=== PATIENT | female | born 1965 | race Caucasian/White ===

== ENCOUNTER → 2016-12-05 | Outpatient (CLI) | payer OTHER ==
[2016-12-05 09:34] LABS: CH 26.1; HCT 36.7 % (34.0-46.0); HDW 3.28; HGB 11.3 gm/dL (11.4-16.0); Hypochromasia Marked; MCHC 30.9 g/dL (31.0-37.0); MCV 87.3 fL (80.0-100.0); Mean Platelet Volume 6.3; RDW 13.1 % (11.5-15.5); WBC 7.4 k/uL (3.8-10.6)
--- NOTE | 2016-12-05 10:19 | US ---
EXAMINATION TYPE: US pelvic complete DATE OF EXAM: 12/05/2016 9:28 AM COMPARISON: NONE CLINICAL HISTORY: N83.20 Previous ovarian cyst. General pelvic pain, dub, prior , tubal TECHNIQUE: Transabdominal (TA) Date of LMP: 11/26/16 EXAM MEASUREMENTS: Uterus: 10.4 x 6.5 x 7.8 cm Endometrial Stripe: 0.9 cm Right Ovary: 5.3 x 3.7 x 3.8 cm Left Ovary: 3.2 x 1.7 x 2.5 cm 1. Uterus: Anteverted bulky attenuating uterine body with 5.0cm myometrial hypoechoic nodule seen anteriorly 2. Endometrium: wnl 3. Right Ovary: seen with a 4.1cm cyst 4. Left Ovary: wnl 5. Bilateral Adnexa: wnl 6. Posterior cul-de-sac: no free fluid seen IMPRESSION: 1. Uterus appears to be bulky and heterogeneous with a 5 cm focal suspected fibroid. 2. 4.1 cm right ovarian cyst has a simple appearance.
[2016-12-05 10:41] LABS: Follicle Stimulating Hormone 9.9 mIU/mL; Prolactin 19.8 ng/mL (3.0-18.6)
== END | disposition home or self-care (01) ==
LOC: RADUSWWP 08:44
PROVIDERS: ATTEND Obstetrics & Gynecology
DX: N83.201 Unspecified ovarian cyst, right side (principal); N92.0 Excessive and frequent menstruation with regular cycle
CPT/HCPCS: 36415; 76856; 83001; 83002; 84146; 84443; 85027

== ENCOUNTER → 2016-12-29 | Outpatient (CLI) | payer OTHER ==
[2016-12-29 10:07] LABS: Basophils # (A) 0.1 k/uL (0-0.2); Basophils % (A) 1 %; CH 24.9; CHCM 29.3; Eosinophils # (A) 0.2 k/uL (0-0.7); Eosinophils % (A) 2 %; HDW 3.31; HGB 10.2 gm/dL (11.4-16.0); Hypochromasia Marked; Luc # (Auto) 0.27; Luc % (Auto) 4; Lymphocytes # (A) 1.6 k/uL (1.0-4.8); Lymphocytes % (A) 25 %; MCH 25.4 pg (25.0-35.0); MCHC 29.9 g/dL (31.0-37.0); MCV 85.1 fL (80.0-100.0); Mean Platelet Volume 6.6; Monocytes # (A) 0.4 k/uL (0-1.0); Monocytes % (A) 6 %; Neutrophils % (A) 62 %; RDW 13.3 % (11.5-15.5); WBC 6.5 k/uL (3.8-10.6); WBC (Perox) 7.05
== END | disposition home or self-care (01) ==
LOC: LABPAT 09:42
PROVIDERS: ATTEND Obstetrics & Gynecology
DX: Z01.818 Encounter for other preprocedural examination (principal); I45.10 Unspecified right bundle-branch block
CPT/HCPCS: 36415; 80053; 80061; 84443; 85025; 86803; 87389; 93005

== ENCOUNTER → 2016-12-29 | Outpatient (CLI) | payer OTHER ==
[2016-12-29 12:23] LABS: ALT 22 U/L (9-52); AST 20 U/L (14-36); Alkaline Phosphatase 80 U/L (38-126); Anion Gap 11 mmol/L; Blood Urea Nitrogen 11 mg/dL (7-17); Calcium 8.9 mg/dL (8.4-10.2); Carbon Dioxide 23 mmol/L (22-30); Chloride 104 mmol/L (98-107); Cholesterol 221 mg/dL (<200); Glucose 74 mg/dL (74-99); HDL Cholesterol 67 mg/dL (40-60); Non-African American GFR(MDRD) >60 (>60 ml/min/1.73 sqM); Potassium 4.4 mmol/L (3.5-5.1); Sodium 138 mmol/L (137-145); Total Bilirubin 0.4 mg/dL (0.2-1.3); Triglycerides 256 mg/dL (<150)
[2016-12-29 15:10] LABS: Hepatitis C Virus IgG Ab Negative (Negative)
[2016-12-30 08:06] LABS: HIV-1/HIV-2 Ab Screen NONREAC (NON REAC)
== END | disposition home or self-care (01) ==
LOC: LABWHC1 09:47
PROVIDERS: ATTEND Family Medicine
DX: Z00.00 Encounter for general adult medical examination without abnormal findings (principal)
CPT/HCPCS: 36415; 80053; 80061; 84443; 86803; 87389

== ENCOUNTER 2017-01-04 09:34 | Day surgery (SDC) | payer OTHER ==
[2017-01-01 15:52] VITALS: BMI 22.7
--- NOTE | 2017-01-04 07:40 | P.HPOB ---
History of Present Illness H&P Date: 01/04/17 Chief Complaint: Menorrhagia Gala is a 51-year-old female with recurrent irregular periods and long menses. Patient reports her last 3 months she's a history of heavy bleeding with passage of clots as large . She's going very concerned and previously with her primary care providers has had no other workup done. She reports that prior to this episode 7 years ago she went to usual having. Abdomen again over the last 5 year she had not had bleeding until approximately 3 months ago ultrasound was done and showed a 5 cm fibroid and a 4 cm simple cyst. She is scheduled for D& C hysteroscopy to rule out cancer or hyperplasia. Risks/benefits/alternatives to this procedure were discussed with the patient in detail and all questions were answered for her prior to proceeding to the operating room. On physical exam vital signs are stable and afebrile. Heart regular, lungs clear, extremities without pain. Pelvic exam has been deferred to the operating room. Past Medical History Past Medical History: Hypertension, Musculoskeletal Disorder Additional Past Medical History / Comment(s): DEGENERATIVE DISC DISEASE, ARTHRITIS SPINE. MENOMETRORRHAGIA History of Any Multi-Drug Resistant Organisms: None Reported Past Surgical History: Appendectomy, Back Surgery, Section, Orthopedic Surgery, Tubal Ligation Additional Past Surgical History / Comment(s): ARTHROSCOPY LEFT KNEE Past Anesthesia/Blood Transfusion Reactions: No Reported Reaction Past Psychological History: No Psychological Hx Reported Smoking Status: Former smoker Past Alcohol Use History: None Reported Additional Past Alcohol Use History / Comment(s): QUIT SMOKING 1995 Past Drug Use History: None Reported - Past Family History Mother Family Medical History: Cancer, Deep Vein Thrombosis (DVT) Medications and Allergies Home Medications Medication Instructions Recorded Confirmed Type Lisinopril [Prinivil] 10 mg PO DAILY 01/01/17 01/01/17 History Allergies Allergy/AdvReac Type Severity Reaction Status Date / Time amoxicillin [From Augmentin] AdvReac SEVERE Verified 01/01/17 15:55 YEAST INFECTION clavulanic acid AdvReac SEVERE Verified 01/01/17 15:55 [From Augmentin] YEAST INFECTION Exam Osteopathic Statement: *. No significant issues noted on an osteopathic structural exam other than those noted in the History and Physical/Consult. - OBG Physical Exam Abdomen: bowel sounds normal, no diffuse tenderness, no bruit present, no guarding noted, no hepatomegaly, no splenomegaly, no mass
[~2017-01-04 09:34] MED LIST: DEXAMETHASONE SOD PHOSPHATE 10 MG/ML 1 ML VIAL IV ONE; HYDROmorphone 1 MG/ML 1 ML SYRINGE IVP PRN; LACTATED RINGERS 1,000 ML IV SCH; ONDANSETRON 4 MG/2 ML VIAL IVP ONE; Pre Op ABX Message 1 EACH MISC MISCELLANE ONE
[2017-01-04] MEDS ORDERED: LIDOCAINE 1% 20 ML VIAL (10MG/ML) FOR IV START INTRADERMA ONE (10:08)
[2017-01-04] MEDS ORDERED: PROPOFOL 10 MG/ML 20 ML VIAL IV ONE (10:38)
[2017-01-04] MEDS ORDERED: LIDOCAINE 1% INJ 10MG/ML (20 ML MDV) ONE (10:38)
[2017-01-04] MEDS ORDERED: MIDAZOLAM 2 MG/2 ML VIAL ONE (10:38)
[2017-01-04] MEDS ORDERED: KETOROLAC 30 MG/ML 1 ML VIAL ONE (10:38)
[2017-01-04] MEDS ORDERED: fentaNYL (PF) 50 MCG/ML 2 ML AMP ONE (10:38)
--- NOTE | 2017-01-04 11:07 | P.OP ---
Date of Procedure: 01/04/17 Preoperative Diagnosis: Menorrhagia Postoperative Diagnosis: Same Procedure(s) Performed: D&C with hysteroscopy Anesthesia: JUAN Surgeon: Jules Lira Estimated Blood Loss (ml): 3 Pathology: other (Uterine curettings and Pap smear) Condition: stable Disposition: same day Operative Findings: Proliferative endometrium Description of Procedure: Patient was taken to the operating suite where a general anesthetic was found be adequate. She was prepped and draped in the normal sterile fashion and placed in the dorsal lithotomy position. Initially a weighted speculum was inserted into the vagina and the anterior lip of the cervix was identified and grasped with a single-toothed tenaculum. Uterus was then sounded to 9 cm and cervix was dilated. Camera was inserted it is noted the patient has a retroverted uterus but no other gross findings are noted. Proliferative endometrium was noted with hysteroscopy. Once this was completed, sharp curettings of the endometrium which were obtained and placed on [facility] pathology to evaluate. Once this was accomplished instruments were removed and a Pap smear was obtained and sent to pathology. Sponge, lap, were all correct 2. Patient was then taken to the recovery room in stable and satisfactory condition. Plan - Discharge Summary New Discharge Prescriptions: Ibuprofen [Motrin] 600 mg PO Q6HR PRN #30 tab PRN Reason: Pain Discharge Medication List HYDROcodone/APAP 7.5-325MG [Hendrix 7.5] 1 - 2 each PO Q6HR PRN #40 tab 01/14/14 [ Rx] Lisinopril [Prinivil] 10 mg PO DAILY 01/01/17 [History] Ibuprofen [Motrin] 600 mg PO Q6HR PRN #30 tab 01/04/17 [Rx] Follow up Appointment(s)/Referral(s): Jules Lira DO [Doctor of Osteopathic Medicine] - 2 Weeks Activity/Diet/Wound Care/Special Instructions: Heavy lifting, limit stairs and driving and pelvic rest today. If any high temperatures, heavy bleeding, or severe pain call my office
[2017-01-04 11:16] VITALS: TEMP 97.4
[2017-01-04 12:07] VITALS: RESP 18
[2017-01-04 12:37] VITALS: BP 122/78; PULSE 78
== END 2017-01-04 13:02 | disposition home or self-care (01) ==
LOC: OR 09:34
PROVIDERS: ATTEND Obstetrics & Gynecology
DX: D25.0 Submucous leiomyoma of uterus (principal); I10 Essential (primary) hypertension; N92.0 Excessive and frequent menstruation with regular cycle; N85.02 Endometrial intraepithelial neoplasia [EIN]; R87.611 Atypical squamous cells cannot exclude high grade squamous intraepithelial lesion on cytologic smear of cervix (ASC-H); Z88.0 Allergy status to penicillin; Z79.899 Other long term (current) drug therapy; Z87.891 Personal history of nicotine dependence
CPT/HCPCS: 81025; 88305; 58558; J2250; J1100; J2405; J2001; J3010; J1885; J2704

== ENCOUNTER → 2017-01-12 | Outpatient (CLI) | payer OTHER ==
--- NOTE | 2017-01-13 12:56 | ECHOF ---
Referral Reason:R00.2 Palpitations MEASUREMENTS -------- HEIGHT: 170.2 cm WEIGHT: 63.5 kg BP: 153/73 RVIDd: 3.2 cm (< 3.3) IVSd: 1.0 cm (0.6 - 1.1) LVIDd: 4.5 cm (3.9 - 5.3) LVPWd: 1.1 cm (0.6 - 1.1) IVSs: 1.3 cm LVIDs: 3.2 cm LVPWs: 1.5 cm LA Diam: 3.3 cm (2.7 - 3.8) LAESV Index (A-L): 14.58 ml/m Ao Diam: 3.3 cm (2.0 - 3.7) AV Cusp: 2.0 cm (1.5 - 2.6) MV EXCURSION: 24.816 mm (> 18.000) MV EF SLOPE: 120 mm/s (70 - 150) EPSS: 0.3 cm MV E Kole: 0.78 m/s MV DecT: 254 ms MV A Kole: 0.74 m/s MV E/A Ratio: 1.06 FINDINGS -------- Sinus rhythm. This was a technically good study. The left ventricular size is normal. There is borderline concentric left ventricular hypertrophy. Overall left ventricular systolic function is normal with, an EF between 60 - 65 %. The right ventricle is normal in size and function. Normal LA size by volume 22+/-6 ml/m2. The right atrium is normal in size. The aortic valve is trileaflet and appears structurally normal. The mitral valve is normal. Trace tricuspid regurgitation present. The pulmonic valve is normal. The aortic root size is normal. Normal inferior vena cava with normal inspiratory collapse consistent with estimated right atrial pressure of 5 mmHg. The pericardium is normal. CONCLUSIONS -------- 1. Sinus rhythm. 2. The mitral valve is normal. 3. Trace tricuspid regurgitation present. 4. The pulmonic valve is normal. 5. The aortic root size is normal. 6. Normal inferior vena cava with normal inspiratory collapse consistent with estimated right atrial pressure of 5 mmHg. 7. The pericardium is normal. 8. This was a technically good study. 9. The left ventricular size is normal. 10. There is borderline concentric left ventricular hypertrophy. 11. Overall left ventricular systolic function is normal with, an EF between 60 - 65 %. 12. The right ventricle is normal in size and function. 13. Normal LA size by volume 22+/-6 ml/m2. 14. The right atrium is normal in size. 15. The aortic valve is trileaflet and appears structurally normal. ART EDITOR: Jana Brothers RDCS
== END | disposition home or self-care (01) ==
LOC: RADECHMAIN 11:18
PROVIDERS: ATTEND Family Medicine
DX: I07.1 Rheumatic tricuspid insufficiency (principal)
CPT/HCPCS: 93306

== ENCOUNTER 2017-01-18 09:25 | Day surgery (SDC) | payer OTHER ==
[2017-01-16 14:55] VITALS: BMI 21.9
[~2017-01-18 09:25] MED LIST changes: -DEXAMETHASONE SOD PHOSPHATE 10 MG/ML 1 ML VIAL IV ONE; -HYDROmorphone 1 MG/ML 1 ML SYRINGE IVP PRN; -ONDANSETRON 4 MG/2 ML VIAL IVP ONE; -Pre Op ABX Message 1 EACH MISC MISCELLANE ONE
[2017-01-18 10:31] VITALS: RESP 16; TEMP 98.5
[2017-01-18] MEDS ORDERED: LIDOCAINE 1% 20 ML VIAL (10MG/ML) FOR IV START INTRADERMA ONE (10:34)
[2017-01-18] MEDS ORDERED: PROPOFOL 10 MG/ML 20 ML VIAL IV ONE (10:40)
--- NOTE | 2017-01-18 10:40 | P.GSHP ---
History of Present Illness H&P Date: 01/18/17 Chief Complaint: Screening colonoscopy - Constitutional Constitutional: Reports as per HPI Past Medical History Past Medical History: Musculoskeletal Disorder Additional Past Medical History / Comment(s): DEGENERATIVE DISC DISEASE, ARTHRITIS SPINE History of Any Multi-Drug Resistant Organisms: None Reported Past Surgical History: Back Surgery, Section, Orthopedic Surgery, Tubal Ligation Additional Past Surgical History / Comment(s): ARTHROSCOPY LEFT KNEE, D & C Past Anesthesia/Blood Transfusion Reactions: No Reported Reaction Past Psychological History: No Psychological Hx Reported Smoking Status: Former smoker Past Alcohol Use History: Rare Additional Past Alcohol Use History / Comment(s): QUIT SMOKING 1992 Past Drug Use History: None Reported - Past Family History Mother Family Medical History: Cancer, Deep Vein Thrombosis (DVT) Medications and Allergies Home Medications Medication Instructions Recorded Confirmed Type Lisinopril [Prinivil] 10 mg PO DAILY 01/01/17 01/18/17 History Allergies Allergy/AdvReac Type Severity Reaction Status Date / Time amoxicillin [From Augmentin] AdvReac SEVERE Verified 01/18/17 10:24 YEAST INFECTION clavulanic acid AdvReac SEVERE Verified 01/18/17 10:24 [From Augmentin] YEAST INFECTION Surgical - Exam Vital Signs Temp Pulse Resp BP 98.5 F 69 16 172/78 01/18/17 10:26 01/18/17 10:26 01/18/17 10:26 01/18/17 10:26 - General well developed, no distress - Eyes PERRL - ENT normal pinna - Neck no masses - Respiratory normal expansion - Cardiovascular Rhythm: regular - Abdomen Abdomen: soft, non tender Assessment and Plan Plan: We'll perform screening colonoscopy
--- NOTE | 2017-01-18 10:43 | P.GSHP ---
History of Present Illness H&P Date: 01/18/17 Chief Complaint: Screening colonoscopy 's is a 51-year-old female for from Dr. Jailene Patterson. Patient rents today for screening colonoscopy Past Medical History Past Medical History: Musculoskeletal Disorder Additional Past Medical History / Comment(s): DEGENERATIVE DISC DISEASE, ARTHRITIS SPINE History of Any Multi-Drug Resistant Organisms: None Reported Past Surgical History: Back Surgery, Section, Orthopedic Surgery, Tubal Ligation Additional Past Surgical History / Comment(s): ARTHROSCOPY LEFT KNEE, D & C Past Anesthesia/Blood Transfusion Reactions: No Reported Reaction Past Psychological History: No Psychological Hx Reported Smoking Status: Former smoker Past Alcohol Use History: Rare Additional Past Alcohol Use History / Comment(s): QUIT SMOKING 1992 Past Drug Use History: None Reported - Past Family History Mother Family Medical History: Cancer, Deep Vein Thrombosis (DVT) Medications and Allergies Home Medications Medication Instructions Recorded Confirmed Type Lisinopril [Prinivil] 10 mg PO DAILY 01/01/17 01/18/17 History Allergies Allergy/AdvReac Type Severity Reaction Status Date / Time amoxicillin [From Augmentin] AdvReac SEVERE Verified 01/18/17 10:24 YEAST INFECTION clavulanic acid AdvReac SEVERE Verified 01/18/17 10:24 [From Augmentin] YEAST INFECTION Surgical - Exam Vital Signs Temp Pulse Resp BP 98.5 F 69 16 172/78 01/18/17 10:26 01/18/17 10:26 01/18/17 10:26 01/18/17 10:26 - General well developed, no distress - Eyes PERRL - ENT normal pinna - Neck no masses - Respiratory normal expansion - Cardiovascular Rhythm: regular - Abdomen Abdomen: soft, non tender Assessment and Plan Plan: We'll perform screening colonoscopy
--- NOTE | 2017-01-18 10:56 | P.OP ---
Date of Procedure: 01/18/17 Preoperative Diagnosis: Screening colonoscopy Postoperative Diagnosis: Diverticulosis Procedure(s) Performed: Colonoscopy Anesthesia: MAC Surgeon: Leo Montoya Pathology: none sent Condition: stable Disposition: PACU Description of Procedure: Patient's placed on the endoscopy table in the lateral position. She received IV sedation. Digital rectal exam was performed which revealed no abnormalities. Flexible colonoscope was then placed patient anus and passed throughout the entire colon. The ileocecal valve was visualized. The cecum, ascending and transverse colon appeared normal. In the descending; was moderate diverticular changes. The scope was then brought back the rectum and this appeared normal. Scope was withdrawn for patient.
[2017-01-18 11:22] VITALS: BP 125/80; PULSE 60
== END 2017-01-18 11:34 | disposition home or self-care (01) ==
LOC: ORWHC2ENDO 09:25
PROVIDERS: ATTEND Surgery
DX: Z12.11 Encounter for screening for malignant neoplasm of colon (principal); K57.30 Diverticulosis of large intestine without perforation or abscess without bleeding; M51.36 Other intervertebral disc degeneration, lumbar region; Z79.891 Long term (current) use of opiate analgesic; Z79.899 Other long term (current) drug therapy; Z87.891 Personal history of nicotine dependence
CPT/HCPCS: 81025; J2704; G0121

== ENCOUNTER → 2017-03-23 | Outpatient (CLI) | payer OTHER ==
[2017-03-23 14:06] LABS: Basophils % (A) 1 %; CH 23.1; CHCM 29.8; Eosinophils # (A) 0.1 k/uL (0-0.7); Eosinophils % (A) 1 %; HCT 36.3 % (34.0-46.0); HDW 2.49; HGB 11.2 gm/dL (11.4-16.0); Hypochromasia Marked; Luc # (Auto) 0.15; Luc % (Auto) 2; Lymphocytes # (A) 1.5 k/uL (1.0-4.8); Lymphocytes % (A) 20 %; MCV 77.7 fL (80.0-100.0); Mean Platelet Volume 6.6; Monocytes # (A) 0.3 k/uL (0-1.0); Monocytes % (A) 5 %; Neutrophils # (A) 5.2 k/uL (1.3-7.7); Neutrophils % (A) 71 %; RBC 4.68 m/uL (3.80-5.40); RDW 15.1 % (11.5-15.5); WBC 7.3 k/uL (3.8-10.6); WBC (Perox) 7.57
[2017-03-23 14:20] LABS: Anion Gap 12 mmol/L; Blood Urea Nitrogen 11 mg/dL (7-17); Calcium 9.4 mg/dL (8.4-10.2); Carbon Dioxide 23 mmol/L (22-30); Chloride 104 mmol/L (98-107); Glucose 82 mg/dL (74-99); Non-African American GFR(MDRD) >60 (>60 ml/min/1.73 sqM); Potassium 3.9 mmol/L (3.5-5.1); Sodium 139 mmol/L (137-145)
== END ==
LOC: LABPAT 13:11
PROVIDERS: ATTEND Obstetrics & Gynecology
DX: Z01.812 Encounter for preprocedural laboratory examination (principal)
CPT/HCPCS: 80048; 85025

== ENCOUNTER 2017-03-29 06:07 | Inpatient (IN) | payer OTHER ==
[2017-03-23 16:05] VITALS: BMI 22.7
[~2017-03-29 06:07] MED LIST changes: +DEXAMETHASONE SOD PHOSPHATE 10 MG/ML 1 ML VIAL IV ONE; -LACTATED RINGERS 1,000 ML IV SCH; +LIDOCAINE 1% 20 ML VIAL (10MG/ML) FOR IV START INTRADERMA PRN; +ONDANSETRON 4 MG/2 ML VIAL IVP ONE; +SCOPOLAMINE 1.5MG/72HR PATCH TRANSDERM ONE; +ceFAZolin 2 GM in SODIUM CHLORIDE 0.9% 100 ML IVPB ONE
[2017-03-29] MEDS: LACTATED RINGERS 1,000 ML IV SCH ×2 (06:48→21:08)
[2017-03-29] MEDS: ONDANSETRON 4 MG/2 ML VIAL IVP ONE ×2 (06:49→09:10)
[2017-03-29] MEDS ORDERED: MIDAZOLAM 2 MG/2 ML VIAL IV ONE (07:15)
[2017-03-29] MEDS ORDERED: ONDANSETRON 4 MG/2 ML VIAL IVP PRN (07:19)
[2017-03-29] MEDS ORDERED: diphenhydrAMINE 50 MG/ML 1 ML VIAL IVP PRN (07:19)
[2017-03-29] MEDS ORDERED: NALOXONE 0.4 MG/ML 1 ML VIAL IV PRN ×2 (07:19→08:56)
[2017-03-29] MEDS ORDERED: MORPHINE SULFATE 4 MG/ML SYRINGE IVP PRN (07:19)
--- NOTE | 2017-03-29 07:35 | P.HPOB ---
History of Present Illness H&P Date: 03/29/17 Chief Complaint: Fibroid uterus with menorrhagia Gala is a 51-year-old female who has heavy vaginal bleeding. Leading is persistent and extremely heavy. It has affected her lifestyle and she is unable to function much of the time. She also has some discomfort from her fibroid and after discussion on treatment options she has opted for a total abdominal hysterectomy with bilateral salpingo-oophorectomy. This is being done primarily because a vertical skin incision that she had of her abdomen and unknown scarring from previous procedures. A D&C was performed and no significant pathology was noted at that time. Risks/benefits/alternatives to this procedure were discussed with the patient in detail including but not limited to bleeding, infection, damage to bladder, bowel, vascular surgery, nerve injuries, ureteral damage. On physical exam vital signs are stable and afebrile. Heart regular, lungs clear, extremities without pain. Osteopathic exam is unremarkable. Abdomen is soft uterus is noted slightly above the pubic synthesis on bimanual exam. Bowel sounds are noted. Pelvic exam otherwise unremarkable. Assessment fibroid uterus with menorrhagia. Plan total abdominal hysterectomy with bilateral salpingo-oophorectomy. Past Medical History Past Medical History: Hypertension, Musculoskeletal Disorder, Osteoarthritis (OA ) Additional Past Medical History / Comment(s): DEGENERATIVE DISC DISEASE, ARTHRITIS SPINE. VERY HEAVY, IRREG MENSES, LGE CLOTS. History of Any Multi-Drug Resistant Organisms: None Reported Past Surgical History: Back Surgery, Section, Orthopedic Surgery, Tubal Ligation Additional Past Surgical History / Comment(s): ARTHROSCOPY LEFT KNEE. D&C, BIOPSY. COLONOSCOPY. Past Anesthesia/Blood Transfusion Reactions: No Reported Reaction Smoking Status: Former smoker - Past Family History Mother Family Medical History: Cancer, Deep Vein Thrombosis (DVT) Medications and Allergies Home Medications Medication Instructions Recorded Confirmed Type Lisinopril [Prinivil] 10 mg PO DAILY 01/01/17 03/23/17 History Allergies Allergy/AdvReac Type Severity Reaction Status Date / Time amoxicillin [From Augmentin] AdvReac SEVERE Verified 03/29/17 06:28 YEAST INFECTION clavulanic acid AdvReac SEVERE Verified 03/29/17 06:28 [From Augmentin] YEAST INFECTION Exam Osteopathic Statement: *. No significant issues noted on an osteopathic structural exam other than those noted in the History and Physical/Consult. - Vital Signs Vital signs: Vital Signs Temp Pulse Resp BP Pulse Ox 03/29/17 06:29 97.8 F 65 16 151/75 99
[2017-03-29] MEDS ORDERED: NEOSTIGMINE 1 MG/ML 10 ML VIAL ONE (07:45)
[2017-03-29] MEDS ORDERED: PROPOFOL 10 MG/ML 20 ML VIAL IV ONE (07:45)
[2017-03-29] MEDS ORDERED: LIDOCAINE 1% INJ 10MG/ML (20 ML MDV) ONE (07:45)
[2017-03-29] MEDS ORDERED: fentaNYL (PF) 50 MCG/ML 2 ML AMP ONE (07:45)
[2017-03-29] MEDS ORDERED: ROCURONIUM BROMIDE 10 MG/ML 10 ML VIAL IV ONE (07:45)
[2017-03-29] MEDS ORDERED: MIDAZOLAM 2 MG/2 ML VIAL ONE (07:45)
[2017-03-29] MEDS ORDERED: SUCCINYLCHOLINE CHLORIDE 100 MG/5 ML SYR IV ONE (07:45)
[2017-03-29] MEDS ORDERED: GLYCOPYRROLATE 0.2 MG/ML 2 ML VIAL ONE (07:45)
[2017-03-29] MEDS ORDERED: LACTATED RINGERS 1,000 ML IV ONE (08:26)
[2017-03-29] MEDS ORDERED: HYDROmorphone PCA 5 MG/25 ML SYRINGE IV PRN (08:56)
--- NOTE | 2017-03-29 09:02 | P.OP ---
Date of Procedure: 03/29/17 Preoperative Diagnosis: Menorrhagia. Fibroid Uterus Postoperative Diagnosis: Same Procedure(s) Performed: Total abdominal hysterectomy with bilateral salpingo-oophorectomy Implants: Anesthesia: ALEKSANDARA Surgeon: Jules Lira Antenna Rigger #1: Bennie Escobar Estimated Blood Loss (ml): 75 IV fluids (ml): 1,000 Urine output (ml): 100 Pathology: other (Uterus, cervix, fallopian tubes and ovaries) Condition: stable Disposition: floor Indications for Procedure: Operative Findings: Multiple fibroids are noted. Very thin fascia is noted as well. There was a fibroid in the right broad ligament. Description of Procedure: Patient was taken to the operative suite where general anesthetic was found be adequate. She was prepped and draped in the normal sterile fashion and placed in the dorsal supine position. Initially a Pfannenstiel skin incision was made and this incision was then carried through to underlying layer of the fascia was second knife. Fascia was then nicked in the midline and this opening was extended laterally with Alejo scissors. Superior and inferior aspect of this incision were then grasped tented up and bluntly and sharply dissected off the rectus muscles. Should be noted that during excision of the fascia very small delma was made but an opening of about an inch or more was noted to just above the fascial layer was. Once this was dissected off the rectus muscles peritoneal entry had Chadd occurred therefore this opening was extended superiorly and inferiorly with good visualization of both bowel bladder. Self- retaining retractor was then inserted and bowels packed out of the operative field. Patient was then placed in steep Trendelenburg position and observations pelvis were noted as above. Long Lizet's clamps then used to clamp the adnexa bilaterally finding the infundibulopelvic ligament bilaterally tissues clamped cut and tied followed by clamp cutting and tying of the round ligament. Once this was accomplished bladder flap was entered and this opening was then extended across face of the uterus and the bladder was only dissected out of the operative field. He clamps then used to clamp the uterine vasculature bilaterally tissues clamped cut and tied there was a fibroid in the broad ligament on the right side and careful dissection around this fibroid was then done capsule was left intact but by dissecting through the peritoneum we are able to pop the fibroid out get it out of our surgical field. Once this was accomplished using Claudia clamps to clamp down moving inferiorly in a stepwise fashion broad ligament tissues and cardinal ligament tissues were clamped cut and tied in usual fashion. Once down to level of the vaginal cuff cuff was entered and corners were held. Uterus and cervix were then removed both ovaries and corners reincorporated into the first stitch to help maintain good support. Interrupted 0 Vicryl suture was then used to close the vaginal cuff and pelvis was then irrigated. Seeing no bleeding from any of the pedicles instruments were removed as was bowel packing. Peritoneal layer was then reapproximated with 0 Vicryl suture fascial layer was reapproximated with 0 Vicryl suture one layer of 3-0 Vicryl was used to reapproximate the subcuticular tissues and the skin was then closed Zhang. Overall patient tolerated surgery very well. Sponge, lap, needle counts were all correct 2. Patient was then taken to the recovery room in stable and satisfactory condition.
[2017-03-29] MEDS: HYDROmorphone 1 MG/ML 1 ML SYRINGE IVP PRN ×3 (09:15→09:39)
[2017-03-29] MEDS: KETOROLAC 30 MG/ML 1 ML VIAL IVP PRN ×3 (09:16→20:52)
[2017-03-29] MEDS: SENNOSIDES-DOCUSATE SODIUM 1 EACH TAB PO SCH ×2 (11:10→20:52)
[2017-03-29] MEDS: SIMETHICONE 80 MG CHEWABLE PO PRN ×2 (12:46→20:52)
[2017-03-30] MEDS: KETOROLAC 30 MG/ML 1 ML VIAL IVP PRN ×3 (03:13→18:52)
[2017-03-30] MEDS: SIMETHICONE 80 MG CHEWABLE PO PRN ×2 (07:06→19:52)
[2017-03-30 07:40] LABS: Anisocytosis Slight; Basophils % (A) 0 %; CH 24.4; Eosinophils % (A) 0 %; HDW 2.55; Hypochromasia Slight; Luc # (Auto) 0.18; Luc % (Auto) 2; Lymphocytes # (A) 1.2 k/uL (1.0-4.8); Lymphocytes % (A) 11 %; MCH 24.7 pg (25.0-35.0); MCHC 31.3 g/dL (31.0-37.0); Mean Platelet Volume 7.5; Microcytosis Slight; Monocytes # (A) 0.6 k/uL (0-1.0); Monocytes % (A) 6 %; Neutrophils # (A) 8.6 k/uL (1.3-7.7); Neutrophils % (A) 81 %; RBC 3.67 m/uL (3.80-5.40); RDW 16.5 % (11.5-15.5); WBC 10.6 k/uL (3.8-10.6); WBC (Perox) 10.71
[2017-03-30 07:41] LABS: HGB 9.1 gm/dL (11.4-16.0)
--- NOTE | 2017-03-30 07:59 | P.PN ---
Progress Note - Text Date: 03/30/2017 Time: 711 The patient is status post, total abdominal hysterectomy Vital signs stable VAS: 0-10 Patient has no complaints of pain. The patient incurred some minimal itching yesterday, this itching is now subsiding. Pain meds to be managed by service.
[2017-03-30] MEDS ORDERED: Acetaminophen-Codeine 300-30mg TAB PO PRN ×2 (08:26)
[2017-03-30] MEDS: LISINOPRIL 10 MG TAB PO SCH (08:44)
[2017-03-30] MEDS: SENNOSIDES-DOCUSATE SODIUM 1 EACH TAB PO SCH ×2 (09:10→19:52)
--- NOTE | 2017-03-30 09:10 | P.PN ---
Progress Note - Text Gala seen and evaluated postop day 1. She is ambulating, and tolerating a diet. She's had some difficulty in voiding and had straight catheter 500 mL last night. She is able to void a little bit suspect this is -2 spasm of the urethra. We'll continue to monitor this through the day. She also is noted to have a low-grade temp of 100.8 T-max however this morning is down to 99.2. We will start her on antibiotics as a precaution but she denies any chills nausea, vomiting or other signs or symptoms of infection. Her incision is otherwise intact. Vital signs are otherwise stable heart regular, lungs clear, extremities without pain. Abdomen soft positive bowel sounds are noted incision is again intact. Assessment postop day 1. Plan antibiotics as precaution and we'll continue to monitor today for signs or symptoms of infection.
[2017-03-30] MEDS: LACTATED RINGERS 1,000 ML IV SCH ×2 (10:35→23:49)
[2017-03-30] MEDS: ONDANSETRON 4 MG/2 ML VIAL IVP PRN ×2 (10:38→17:01)
[2017-03-30] MEDS ORDERED: HYDROcodone/APAP 5-325MG 1 EACH TAB PO PRN (14:11)
[2017-03-30] MEDS: CEPHALEXIN 500 MG CAP PO SCH ×3 (14:51→21:37)
[2017-03-30] MEDS: HYDROcodone/APAP 5-325MG 1 EACH TAB PO PRN (19:54)
[2017-03-31] MEDS: HYDROcodone/APAP 5-325MG 1 EACH TAB PO PRN ×2 (01:12→08:07)
[2017-03-31] MEDS: KETOROLAC 30 MG/ML 1 ML VIAL IVP PRN (01:15)
[2017-03-31 05:40] LABS: Anisocytosis Slight; Basophils % (A) 0 %; CHCM 30.2; Eosinophils % (A) 0 %; HCT 26.7 % (34.0-46.0); HDW 2.41; HGB 8.4 gm/dL (11.4-16.0); Hypochromasia Moderate; Luc # (Auto) 0.18; Luc % (Auto) 2; Lymphocytes # (A) 1.3 k/uL (1.0-4.8); Lymphocytes % (A) 18 %; MCH 25.2 pg (25.0-35.0); MCHC 31.5 g/dL (31.0-37.0); MCV 79.9 fL (80.0-100.0); Mean Platelet Volume 7.4; Monocytes # (A) 0.5 k/uL (0-1.0); Monocytes % (A) 6 %; Neutrophils # (A) 5.3 k/uL (1.3-7.7); Neutrophils % (A) 73 %; RBC 3.34 m/uL (3.80-5.40); WBC 7.3 k/uL (3.8-10.6); WBC (Perox) 7.79
[2017-03-31 08:26] VITALS: BP 126/82; PULSE 68; RESP 17; TEMP 98.1
[2017-03-31] MEDS: CEPHALEXIN 500 MG CAP PO SCH (09:21)
[2017-03-31] MEDS: SENNOSIDES-DOCUSATE SODIUM 1 EACH TAB PO SCH (09:49)
[2017-03-31] MEDS: LISINOPRIL 10 MG TAB PO SCH (09:49)
[2017-03-31] MEDS: SIMETHICONE 80 MG CHEWABLE PO PRN (09:49)
--- NOTE | 2017-03-31 10:14 | P.DS ---
Providers Date of admission: 03/29/17 06:07 Expected date of discharge: 03/31/17 Attending physician: Jules Lira Primary care physician: Jailene Patterson [facility] Course: Gala doing very well postop day 2. She is involuting, voiding, and she is tolerating her diet she voices no complaints and is requesting discharge to home. It is noted that she had some low-grade temps yesterday but nothing after approximately 4:00 that would be concerning. Her white blood cell count is down to 7 and she has had no temps today. She will prefer to go home rather than wait and as I have no other specific reason to keep her we'll plan discharged home today plan to continue her Keflex as well as Motrin and Woodland for pain. Also prescription for Diflucan has been provided she has had a history of yeast infections after antibiotics. She will follow up with me on Sunday regardless to remove yaya so that we may reassess all of her other symptoms as a precaution. Her vital signs otherwise are stable. Heart regular , lungs clear, extremities without pain. Abdomen soft bowel sounds are noted and she has had a bowel movement. Her incision is otherwise clean dry and intact. Assessment postop day 2. Plan discharged to home and follow-up with me on Sunday. Patient Condition at Discharge: Good Plan - Discharge Summary New Discharge Prescriptions: New Cephalexin [Keflex] 500 mg PO Q6HR #20 cap HYDROcodone/APAP 5-325MG [Woodland 5-325] 1 tab PO Q4HR PRN #30 tab PRN Reason: Pain Ibuprofen [Motrin] 600 mg PO Q6HR PRN #30 tab PRN Reason: Pain Fluconazole [Diflucan] 150 mg PO DAILY #2 tab No Action HYDROcodone/APAP 7.5-325MG [Woodland 7.5] 1 - 2 each PO Q6HR PRN #40 tab PRN Reason: Pain Lisinopril [Prinivil] 10 mg PO DAILY Discharge Medication List HYDROcodone/APAP 7.5-325MG [Woodland 7.5] 1 - 2 each PO Q6HR PRN #40 tab 01/14/14 [ Rx] Lisinopril [Prinivil] 10 mg PO DAILY 01/01/17 [History] Cephalexin [Keflex] 500 mg PO Q6HR #20 cap 03/31/17 [Rx] Fluconazole [Diflucan] 150 mg PO DAILY #2 tab 03/31/17 [Rx] HYDROcodone/APAP 5-325MG [Woodland 5-325] 1 tab PO Q4HR PRN #30 tab 03/31/17 [Rx] Ibuprofen [Motrin] 600 mg PO Q6HR PRN #30 tab 03/31/17 [Rx] Follow up Appointment(s)/Referral(s): Jules Lira DO [Doctor of Osteopathic Medicine] - 04/02/17 Activity/Diet/Wound Care/Special Instructions: No heavy lifting, limit stairs and driving, and pelvic rest. If any high temperatures, heavy bleeding, or severe pain call my office Discharge Disposition: HOME SELF-CARE
== END 2017-03-31 11:19 | disposition home or self-care (01) | DRG 743 ==
LOC: 2ORMAIN 06:07 → 6PED 09:41
PROVIDERS: ADMIT Obstetrics & Gynecology; ATTEND Obstetrics & Gynecology
PROC: 0UT90ZZ Resection of Uterus, Open Approach (ICD-10-PCS; principal; 2017-03-29 07:45)
PROC: 0UT70ZZ Resection of Bilateral Fallopian Tubes, Open Approach (ICD-10-PCS; principal; 2017-03-29 07:45)
PROC: 0UT20ZZ Resection of Bilateral Ovaries, Open Approach (ICD-10-PCS; principal; 2017-03-29 07:45)
PROC: 0UTC0ZZ Resection of Cervix, Open Approach (ICD-10-PCS; principal; 2017-03-29 07:45)
DX: D25.9 Leiomyoma of uterus, unspecified (principal); I10 Essential (primary) hypertension; N92.0 Excessive and frequent menstruation with regular cycle; Z79.899 Other long term (current) drug therapy; Z87.891 Personal history of nicotine dependence; Z88.1 Allergy status to other antibiotic agents
CPT/HCPCS: 85025; 86850; 86900; 86901; 88307

== ENCOUNTER → 2017-06-12 | Outpatient (CLI) | payer OTHER ==
--- NOTE | 2017-06-14 07:32 | MM ---
Reason for exam: screening (asymptomatic). Last mammogram was performed 3 years and 8 months ago. Physical Findings: A clinical breast exam by your physician is recommended on an annual basis and results should be correlated with mammographic findings. MG Screening Mammo w CAD Bilateral CC and MLO view(s) were taken. Prior study comparison: October 15, 2013, mammogram, performed at [facility]. October 07, 2013, mammogram, performed at [facility]. The breast tissue is heterogeneously dense. This may lower the sensitivity of mammography. Focal asymmetry 3-4 o'clock in the left breast at a middle depth appears more defined. This may represent summation shadow. Further evaluation recommended. ASSESSMENT: Incomplete: need additional imaging evaluation, BI-RAD 0 RECOMMENDATION: Special view mammogram of the left breast. If lesion persists on supplemental views, image directed ultrasound is recommended. [facility] will attempt to contact patient to return for supplemental views and ultrasound if indicated.
== END | disposition home or self-care (01) ==
LOC: RADMAMWWP 07:22
PROVIDERS: ATTEND Family Medicine
DX: Z12.31 Encounter for screening mammogram for malignant neoplasm of breast (principal)

== ENCOUNTER → 2017-06-15 | Outpatient (CLI) | payer OTHER ==
--- NOTE | 2017-06-18 07:36 | MM ---
Reason for exam: additional evaluation requested from abnormal screening. Last mammogram was performed less than 1 month ago. History: Patient is postmenopausal. Physical Findings: Nurse did not find any significant physical abnormalities on exam. MG Work Up Mamm w CAD LT Spot compression CC, spot compression MLO, and LM view(s) were taken of the left breast. Prior study comparison: June 12, 2017, bilateral MG screening mammo w CAD. October 15, 2013, mammogram, performed at [facility]. The breast tissue is heterogeneously dense. This may lower the sensitivity of mammography. There is no discrete abnormality including area of concern. These results were verbally communicated with the patient and result sheet given to the patient on 06/15/17. ASSESSMENT: Negative, BI-RAD 1 RECOMMENDATION: Return to routine screening mammogram schedule for both breasts.
== END | disposition home or self-care (01) ==
LOC: RADMAMWWP 08:30
PROVIDERS: ATTEND Family Medicine
DX: R92.8 Other abnormal and inconclusive findings on diagnostic imaging of breast (principal)

== ENCOUNTER 2018-07-05 22:43 | Emergency (ER) | payer OTHER ==
[2018-07-05 22:57] VITALS: RESP 18; TEMP 97.8
[2018-07-06] MEDS ORDERED: predniSONE 20 MG TAB PO STA (00:13)
[2018-07-06] MEDS ORDERED: KETOROLAC 60 MG/2 ML VIAL IM STA (00:13)
[2018-07-06] MEDS ORDERED: ORPHENADRINE 30 MG/ML 2 ML VIAL IM STA (00:13)
--- NOTE | 2018-07-06 00:18 | ED ---
Back Pain HPI - General Chief Complaint: Back Pain/Injury Stated Complaint: Back Injury Time Seen by Provider: 07/05/18 23:22 Source: patient Limitations: no limitations - History of Present Illness Initial Comments: This patient's 53-year-old woman who presents to be evaluated for low back pain. The patient states that she does have history of chronic low back pain, but that it has been worse. She states that she had reached back into the left restoration garbage can full of leaves and then felt a pop in her back. Since that time she has had pain to the low back and states that it feels like it is to the bilateral legs. She denies saddle anesthesia, change in urination or bowel movements. The patient states that she tried to take Windfall at home, but it only gave a minimal relief. The patient states the pain is constant, severe, a little better if she is upright or walking. States the pain is worse if she tries to sit. The patient does note that she is to see her orthopedic doctor and to have an MRI of the back scheduled on the . MD Complaint: back pain, back injury Onset/Timin -: days(s) Place: home Radiation: left leg, right leg Severity: severe Quality: aching Consistency: constant Improves With: walking Worsens With: movement Context: bending Associated Symptoms: denies other symptoms Treatments Prior to Arrival: prescription analgesics - Related Data Home Medications Medication Instructions Recorded Confirmed Lisinopril [Prinivil] 10 mg PO DAILY 01/01/17 07/05/18 HYDROcodone/APAP 5-325MG [[place] 1 tab PO DAILY PRN 07/05/18 07/05/18 5-325] Previous Rx's Medication Instructions Recorded Hydrocodone/Acetaminophen [[place] 1 each PO Q6HR PRN #10 tab 07/06/18 5-325] Methocarbamol [Robaxin-750] 750 mg PO TID PRN #30 tablet 07/06/18 predniSONE 60 mg PO DAILY #30 tab 07/06/18 Allergies Allergy/AdvReac Type Severity Reaction Status Date / Time amoxicillin [From Augmentin] AdvReac SEVERE Verified 07/05/18 23:11 YEAST INFECTION clavulanic acid AdvReac SEVERE Verified 07/05/18 23:11 [From Augmentin] YEAST INFECTION Review of Systems ROS Statement: Those systems with pertinent positive or pertinent negative responses have been documented in the HPI. ROS Other: All systems not noted in ROS Statement are negative. Constitutional: Denies: fever, chills, weakness Respiratory: Denies: cough, dyspnea Cardiovascular: Denies: chest pain, palpitations, edema Gastrointestinal: Denies: abdominal pain, nausea, vomiting, diarrhea, constipation Genitourinary: Denies: urgency, dysuria, hematuria Musculoskeletal: Reports: as per HPI, back pain Skin: Denies: rash Neurological: Denies: weakness, numbness, paresthesias Past Medical History Past Medical History: Musculoskeletal Disorder Additional Past Medical History / Comment(s): DEGENERATIVE DISC DISEASE, ARTHRITIS SPINE History of Any Multi-Drug Resistant Organisms: None Reported Past Surgical History: Back Surgery, Section, Orthopedic Surgery, Tubal Ligation Additional Past Surgical History / Comment(s): ARTHROSCOPY LEFT KNEE Past Anesthesia/Blood Transfusion Reactions: No Reported Reaction Past Psychological History: No Psychological Hx Reported Smoking Status: Former smoker Past Alcohol Use History: None Reported Past Drug Use History: None Reported - Past Family History Mother Family Medical History: Cancer, Deep Vein Thrombosis (DVT) General Exam Limitations: no limitations General appearance: alert, in no apparent distress Head exam: Present: atraumatic, normocephalic GI/Abdominal exam: Present: soft. Absent: distended, tenderness, guarding, rebound, pulsatile mass Back exam: Present: normal inspection, tenderness, paraspinal tenderness. Absent: CVA tenderness (R), CVA tenderness (L), vertebral tenderness Neurological exam: Present: alert, normal gait, reflexes normal. Absent: motor sensory deficit Skin exam: Present: warm, dry, intact, normal color. Absent: rash Course Vital Signs 07/05/18 22:55 Temperature 97.8 F Pulse Rate 80 Respiratory 18 Rate Blood Pressure 143/85 O2 Sat by Pulse 99 Oximetry Disposition Clinical Impression: Strain of lumbar region Disposition: HOME SELF-CARE Condition: Good Instructions: Acute Low Back Pain (ED) Prescriptions: Hydrocodone/Acetaminophen [[place]fall 5-325] 1 each PO Q6HR PRN #10 tab PRN Reason: Pain Methocarbamol [Robaxin-750] 750 mg PO TID PRN #30 tablet PRN Reason: pain predniSONE 60 mg PO DAILY #30 tab Is patient prescribed a controlled substance at d/c from ED?: No Referrals: Leonardo,Jailene, DO [Primary Care Provider] - 1-2 days
[2018-07-06 01:17] VITALS: BP 135/95; PULSE 72
== END 2018-07-06 01:17 | disposition home or self-care (01) ==
LOC: EC 22:43
DX: S39.012A Strain of muscle, fascia and tendon of lower back, initial encounter (principal); Z87.891 Personal history of nicotine dependence; Z88.0 Allergy status to penicillin; Z79.899 Other long term (current) drug therapy; X50.1XXA Overexertion from prolonged static or awkward postures, initial encounter; Y92.009 Unspecified place in unspecified non-institutional (private) residence as the place of occurrence of the external cause
CPT/HCPCS: 99283; 96372 ×2; J2360; J1885; J7512

== ENCOUNTER → 2018-11-09 | Outpatient (CLI) | payer OTHER ==
--- NOTE | 2018-11-09 16:14 | MR ---
EXAMINATION TYPE: MR knee LT wo con DATE OF EXAM: 11/09/2018 COMPARISON: MRI knee November 21, 2013 HISTORY: ACL Tear / Lateral Meniscus Tear per order. Pain and locking and swelling for 7 years with h istory of twisting injury per patient. TECHNIQUE: Multiplanar, multisequence images of the knee is performed without IV contrast. FINDINGS: There is previous surgery with reconstruction of the anterior cruciate ligament. There is bone defect in the distal femur and proximal tibia related to the surgery. The anterior cruciate ligament is not seen. The posterior cruciate ligament is intact. There is some thinning of the lateral meniscus. The re is complex signal in the anterior horn of the lateral meniscus. There is also similar mild thinnin g of the medial meniscus. There is narrowing of the medial and lateral joint spaces with spurring of the femoral and tibial condyles. There is a horizontal intrasubstance tear of the medial meniscus. Th e collateral ligaments are intact. There is no evidence of a fracture. There is hypertrophic spurring of the patella and the femoral condyles. There is a small knee joint effusion. IMPRESSION: Intrasubstance tear of the medial meniscus. Significant degenerative thinning of the ante rior horn lateral meniscus with complex intrasubstance tear. Hypertrophic osteoarthritis. Joint space narrowing. Previous surgery. Complete tear of the anterior cruciate ligament. No recognizable anterior cruciate ligament. Small joint effusion. There is progression of the tear of the anterior horn lateral meniscus compared to old exam. No shirley e in the medial meniscus. There is progression of the osteoarthritic knee joint space narrowing with significant loss of articular cartilage of the femoral and tibial condyles.
== END ==
LOC: RADMRIMAIN 11:09
PROVIDERS: ATTEND Orthopaedic Surgery
DX: S83.242A Other tear of medial meniscus, current injury, left knee, initial encounter (principal); S83.272A Complex tear of lateral meniscus, current injury, left knee, initial encounter; S83.512A Sprain of anterior cruciate ligament of left knee, initial encounter; M17.12 Unilateral primary osteoarthritis, left knee; M79.89 Other specified soft tissue disorders

== ENCOUNTER 2018-11-21 09:17 | Day surgery (SDC) | payer OTHER ==
[~2018-11-21 09:17] MED LIST changes: +ALPRAZolam 0.5 MG TAB PO ONE; -DEXAMETHASONE SOD PHOSPHATE 10 MG/ML 1 ML VIAL IV ONE; -LIDOCAINE 1% 20 ML VIAL (10MG/ML) FOR IV START INTRADERMA PRN; -ONDANSETRON 4 MG/2 ML VIAL IVP ONE; -SCOPOLAMINE 1.5MG/72HR PATCH TRANSDERM ONE; -ceFAZolin 2 GM in SODIUM CHLORIDE 0.9% 100 ML IVPB ONE
[2018-11-21 09:54] VITALS: TEMP 97.5
[2018-11-21 11:41] VITALS: BP 147/71; PULSE 100; RESP 14
--- NOTE | 2018-11-21 14:44 | US ---
EXAMINATION TYPE: US FNA thyroid first lesion DATE OF EXAM: 11/21/2018 COMPARISON: NONE HISTORY: Right Thyroid nodule. Maximal barrier technique was utilized. After informed consent, skin overlying the right-sided nodul e was localized with ultrasound and the overlying skin prepped and draped. Ultrasound was utilized us ing sterile technique. Lidocaine was used for local anesthesia. Five passes with a 25-gauge needle w ere made into the nodule and aspirated specimen was submitted to cytology. Following the procedure h emostasis achieved. No immediate complication. The patient discharged in stable condition. IMPRESSION: STATUS POST ULTRASOUND GUIDED FINE NEEDLE ASPIRATION OF THYROID NODULE, PATHOLOGY IS PEND ING. THIS PROCEDURE WAS PERFORMED BY THE UNDERSIGNED.
== END 2018-11-21 11:35 | disposition home or self-care (01) ==
LOC: RADPROMAIN 09:17
PROVIDERS: ATTEND Family Medicine
DX: E04.1 Nontoxic single thyroid nodule (principal)
CPT/HCPCS: 10005; 88173; 88305

== ENCOUNTER → 2018-12-23 | Outpatient (CLI) | payer OTHER ==
--- NOTE | 2018-12-23 18:54 | BD ---
EXAMINATION TYPE: Axial Bone Density DATE OF EXAM: 12/23/2018 COMPARISON: NONE CLINICAL HISTORY: 53-year-old female postmenopausal screening Height: 65.2 IN Weight: 164 LBS RISK FACTORS HISTORY OF: Surgery to Spine: YES When: 2004 Family History of Osteoporosis: MOTHER Active: YES Postmenopausal woman: AGE 51 Take estrogen and/or progesterone medications: YES How long: PREMARIN 1 MONTH MEDICATIONS: Thyroid Medications: YES Which medication: Levothyroxine How Lon MONTH Additional Medications: VIT D, PREMARIN, Levothyroxine, lisinopril, MOBIC EXAM MEASUREMENTS: Bone mineral densitometry was performed using the L8 SmartLight System. Bone mineral density about the R hip (g/cm2): 0.999 Bone mineral density about the L hip (g/cm2): 0.993 T Score values are as follows: -----R Neck: -0.3 -----L Neck: -0.3 -----R Total: 0.0 -----L Total: -0.4 Bone mineral density BASELINE Bone mineral density about the L Wrist (g/cm2): 0.629 T Score values are as follows: -----Dist. R+U: -1.3 -----Prox. R+U: -0.4 -----Radius total: -0.8 Bone mineral density BASELINE IMPRESSION: Normal (Values between +1 and -1 indicate normal bone mass) as measured in both hips and the left wri st (previous spine surgery). Consider repeating this study in 5 years or sooner if there is some new clinical indication. NOTE: T-SCORE=SD OF THE YOUNG ADULT MEAN.
--- NOTE | 2018-12-24 11:41 | MM ---
Reason for exam: screening (asymptomatic). Last mammogram was performed 1 year and 6 months ago. History: Patient is postmenopausal. Family history of breast cancer in mother at age 88. Took estrogen for 1 month beginning at age 53. Physical Findings: A clinical breast exam by your physician is recommended on an annual basis and results should be correlated with mammographic findings. MG Screening Mammo w CAD Bilateral CC and MLO view(s) were taken. Prior study comparison: June 15, 2017, left breast MG work up mamm w CAD LT. June 12, 2017, bilateral MG screening mammo w CAD. The breast tissue is extremely dense which could obscure a lesion on mammography. Benign calcifications in the left breast. No suspicious abnormality. ASSESSMENT: Benign, BI-RAD 2 RECOMMENDATION: Routine screening mammogram of both breasts in 1 year.
== END | disposition home or self-care (01) ==
LOC: RADMAMWWP 09:16
PROVIDERS: ATTEND Family Medicine
DX: Z12.31 Encounter for screening mammogram for malignant neoplasm of breast (principal); Z13.820 Encounter for screening for osteoporosis; Z78.0 Asymptomatic menopausal state
CPT/HCPCS: 77067; 77080

== ENCOUNTER 2019-03-28 13:13 | Emergency (ER) | payer OTHER ==
[2019-03-28 13:27] VITALS: RESP 18; TEMP 98.2
--- NOTE | 2019-03-28 14:14 | XR ---
Left hip HISTORY: Pain Bone mineralization, joint spaces and alignment are maintained. Postop change noted to be lumbosacral spine. Questionable sclerosis lucency in the left iliac wing may be due to artifact. IMPRESSION: No fracture or dislocation. Findings in the left ilium as described.
--- NOTE | 2019-03-28 14:16 | XR ---
Left knee HISTORY: Pain, trauma 3 views of the left knee Patient is status post left knee arthroplasty. Prior anterior cruciate ligament repair change suspect ed. Alignment is maintained. Bone mineralization is reduced. Suprapatellar increased density compatib le joint effusion. Suspect there is soft tissue swelling. IMPRESSION: No acute fracture or dislocation. Joint effusion, soft tissue swelling.
--- NOTE | 2019-03-28 14:52 | ED ---
Fall HPI - General Chief Complaint: Fall Stated Complaint: Knee Surgery, Fall Time Seen by Provider: 03/28/19 14:19 Source: patient Mode of arrival: ambulatory - History of Present Illness Initial Comments: Patient is a 53-year-old female who presents emergency Department after taking a fall down 5 or 6 stairs in complaining of left knee pain. Patient is 5 months status post left TKA. Patient states she fell back onto her back and her left knee bent under her. Patient states she is unable to put weight on her left knee and there is some noted swelling. Patient also has a history of 2 ACL repairs in the same knee. Patient was also complaining of left hip pain. No other complaints at this time. Patient denies hitting her head, LOC. - Related Data Home Medications Medication Instructions Recorded Confirmed Lisinopril [Prinivil] 10 mg PO DAILY 01/01/17 11/21/18 Cholecalciferol (Vitamin D3) 2,000 unit PO DAILY 11/06/18 11/21/18 [Vitamin D3] Estrogens, Conjugated [Premarin] 0.625 mg PO DAILY 11/21/18 11/21/18 Previous Rx's Medication Instructions Recorded Hydrocodone/Acetaminophen [[place] 1 each PO Q6HR PRN #10 tab 07/06/18 5-325] Allergies Allergy/AdvReac Type Severity Reaction Status Date / Time amoxicillin [From Augmentin] AdvReac SEVERE Verified 03/28/19 13:24 YEAST INFECTION clavulanic acid AdvReac SEVERE Verified 03/28/19 13:24 [From Augmentin] YEAST INFECTION Review of Systems ROS Statement: Those systems with pertinent positive or pertinent negative responses have been documented in the HPI. ROS Other: All systems not noted in ROS Statement are negative. Past Medical History Past Medical History: Musculoskeletal Disorder Additional Past Medical History / Comment(s): DEGENERATIVE DISC DISEASE, ARTHRITIS SPINE History of Any Multi-Drug Resistant Organisms: None Reported Past Surgical History: Back Surgery, Section, Orthopedic Surgery, Tubal Ligation Additional Past Surgical History / Comment(s): ARTHROSCOPY LEFT KNEE Past Anesthesia/Blood Transfusion Reactions: No Reported Reaction Past Psychological History: No Psychological Hx Reported Smoking Status: Former smoker Past Alcohol Use History: None Reported Past Drug Use History: None Reported - Past Family History Mother Family Medical History: Cancer, Deep Vein Thrombosis (DVT) General Exam - General Exam Comments Initial Comments: GENERAL: Well-appearing, well-nourished and in no acute distress. HEAD: Atraumatic, normocephalic. EYES: Pupils equal round and reactive to light, extraocular movements intact, sclera anicteric, conjunctiva are normal. ENT: TMs normal, nares patent, oropharynx clear without exudates. Moist mucous membranes. NECK: Normal range of motion, supple without lymphadenopathy or JVD. LUNGS: Breath sounds clear to auscultation bilaterally and equal. No wheezes rales or rhonchi. HEART: Regular rate and rhythm without murmurs, rubs or gallops. ABDOMEN: Soft, nontender, normoactive bowel sounds. No guarding, no rebound. N o masses appreciated. : Deferred EXTREMITIES: Patient has tenderness of the left knee and the joint line and suprapatella. There is some mild swelling the suprapatellar area. Patient is able to extend the knee to about -20. Patient can flex the knee to about 100. No tenderness of the left ankle, left calf. Neurovascular intact. NEUROLOGICAL: Cranial nerves II through XII grossly intact. Normal speech, normal gait. PSYCH: Normal mood, normal affect. SKIN: Warm, Dry, normal turgor, no rashes or lesions noted. Limitations: no limitations Course Vital Signs 03/28/19 03/28/19 13:24 15:26 Temperature 98.2 F 98.2 F Pulse Rate 62 64 Respiratory 18 18 Rate Blood Pressure 132/82 130/78 O2 Sat by Pulse 98 Oximetry Medical Decision Making - Medical Decision Making Patient is a 53-year-old female with complaints of left knee pain following a fall down 5 stairs today. Patient states she fell back and her back and her left knee went underneath her. Patient is 5 months status post left TKA. Patient is having pain with walking. On exam patient has tenderness in the joint line and suprapatellar area. There is some swelling in the suprapatellar area neurovascular intact. X-ray showed no acute fractures or dislocations. Patient will follow up with surgeon in 1-2 weeks if pain continues. Patient will continue with ice and gentle range of motion. Return parameters were discussed with the patient and she verbalized understanding. Patient will be discharged home. Case discussed with Dr. De Los Santos. Disposition Clinical Impression: Fall, Left knee pain Disposition: HOME SELF-CARE Condition: Stable Instructions (If sedation given, give patient instructions): Swollen Knee Joint (ED), Knee Pain (ED) Additional Instructions: Please return to the Emergency Department if symptoms worsen or any other concerns. Follow-up with orthopedic in 1 to 2 weeks as needed. Is patient prescribed a controlled substance at d/c from ED?: No Referrals: Jailene Patterson DO [Primary Care Provider] - 1-2 days
[2019-03-28 15:28] VITALS: BP 130/78; PULSE 64
== END 2019-03-28 15:26 | disposition home or self-care (01) ==
LOC: EC 13:13
DX: M25.562 Pain in left knee (principal); M25.552 Pain in left hip; Z87.891 Personal history of nicotine dependence; Z79.899 Other long term (current) drug therapy; Z88.0 Allergy status to penicillin; Z96.652 Presence of left artificial knee joint; W10.9XXA Fall (on) (from) unspecified stairs and steps, initial encounter; Y92.009 Unspecified place in unspecified non-institutional (private) residence as the place of occurrence of the external cause
CPT/HCPCS: 73502; 99283

== ENCOUNTER 2019-08-19 23:27 | Emergency (ER) | payer OTHER ==
[2019-08-19 23:30] VITALS: RESP 18; TEMP 97.9
[2019-08-20] MEDS ORDERED: diphenhydrAMINE 50 MG/ML 1 ML VIAL IVP STA (00:15)
[2019-08-20] MEDS ORDERED: SODIUM CHLORIDE 0.9% 1,000 ML IV STA (00:15)
[2019-08-20] MEDS ORDERED: METOCLOPRAMIDE 5 MG/ML 2 ML VIAL IVP STA (00:15)
--- NOTE | 2019-08-20 01:26 | ED ---
Headache HPI - General Chief Complaint: Headache Stated Complaint: Headache Time Seen by Provider: 08/19/19 23:56 Mode of arrival: ambulatory Limitations: no limitations - History of Present Illness Initial Comments: On is a pleasant 54-year-old female with a past medical history significant for migraine headaches which she has been told is likely secondary to Chiari I malformation. Patient presents to the emergency department today for evaluation of headache that has been ongoing for 2 days duration. Headache was not sudden in onset, is not the worst headache of her life, is not associated with any focal neurologic deficits, vision changes or fever. Patient reports this is similar to previous migraines she just can't get it under control with home medications which include Excedrin. Patient states that he has previously followed with neurology for her migraines but had a couple years migraine free and therefore currently has no prescription medications and hasn't followed with neurology in a while. - Related Data Home Medications Medication Instructions Recorded Confirmed Lisinopril [Prinivil] 10 mg PO DAILY 01/01/17 11/21/18 Cholecalciferol (Vitamin D3) 2,000 unit PO DAILY 11/06/18 11/21/18 [Vitamin D3] Estrogens, Conjugated [Premarin] 0.625 mg PO DAILY 11/21/18 11/21/18 Previous Rx's Medication Instructions Recorded Hydrocodone/Acetaminophen [[place] 1 each PO Q6HR PRN #10 tab 07/06/18 5-325] Allergies Allergy/AdvReac Type Severity Reaction Status Date / Time amoxicillin [From Augmentin] AdvReac SEVERE Verified 08/19/19 23:30 YEAST INFECTION clavulanic acid AdvReac SEVERE Verified 08/19/19 23:30 [From Augmentin] YEAST INFECTION Review of Systems ROS Statement: Those systems with pertinent positive or pertinent negative responses have been documented in the HPI. ROS Other: All systems not noted in ROS Statement are negative. Past Medical History Past Medical History: Musculoskeletal Disorder Additional Past Medical History / Comment(s): DEGENERATIVE DISC DISEASE, ARTHRITIS SPINE, migraines History of Any Multi-Drug Resistant Organisms: None Reported Past Surgical History: Back Surgery, Section, Orthopedic Surgery, Tubal Ligation Additional Past Surgical History / Comment(s): ARTHROSCOPY LEFT KNEE Past Anesthesia/Blood Transfusion Reactions: No Reported Reaction Past Psychological History: No Psychological Hx Reported Smoking Status: Former smoker Past Alcohol Use History: None Reported Past Drug Use History: None Reported - Past Family History Mother Family Medical History: Cancer, Deep Vein Thrombosis (DVT) General Exam - General Exam Comments Initial Comments: Physical Exam GENERAL: Patient is well-developed and well-nourished. Patient is nontoxic and well-hydrated and is in no distress. HENT: Normocephalic, Atraumatic. EYES: PERRL, EOMI PULMONARY: Unlabored respirations. CARDIOVASCULAR: RRR Warm and well perfused extremities ABDOMEN: Non-distended SKIN: No rashes or bruising : Deferred NEUROLOGIC: Alert and oriented Normal speech Normal gait MUSCULOSKELETAL: Moving all extremities with no apparent injury PSYCHIATRIC: No SI/HI Limitations: no limitations Course Vital Signs 08/19/19 08/20/19 23:28 01:39 Temperature 97.9 F 97.9 F Pulse Rate 76 63 Respiratory 18 18 Rate Blood Pressure 175/102 141/81 O2 Sat by Pulse 98 98 Oximetry Medical Decision Making - Medical Decision Making The patient was seen and evaluated history is obtained from the patient and at bedside for this pleasant 54-year-old history of migraines presents with migraine-like headache. No red flag symptoms. Patient treated with IV fluids Reglan and Benadryl. After receiving medications patient was noted to be resting comfortably she called the nurse and asked to be discharged home saying that she feels completely resolved would like to sleep at home tonight. I reevaluated the patient who again asserts that she is completely resolved and would like to be discharged home at this time. Patient encouraged follow-up with her primary care physician for referral back to neurology if she has increasing frequency of her headaches. Disposition Clinical Impression: Headache Disposition: HOME SELF-CARE Condition: Stable Instructions (If sedation given, give patient instructions): Acute Headache (ED) Is patient prescribed a controlled substance at d/c from ED?: No Referrals: Jailene Patterson DO [Primary Care Provider] - 1-2 days
[2019-08-20 01:42] VITALS: BP 141/81; PULSE 63
== END 2019-08-20 01:42 | disposition home or self-care (01) ==
LOC: EC 23:27
DX: R51 Headache (principal); Z79.3 Long term (current) use of hormonal contraceptives; Z79.899 Other long term (current) drug therapy; Z98.890 Other specified postprocedural states; Z87.891 Personal history of nicotine dependence; Z88.1 Allergy status to other antibiotic agents; Z88.0 Allergy status to penicillin; Z86.69 Personal history of other diseases of the nervous system and sense organs
CPT/HCPCS: 99283; 96374; 96375; 96361; J1200; J2765

== ENCOUNTER → 2019-11-10 | Outpatient (CLI) | payer OTHER, MEDICARE ==
--- NOTE | 2019-11-10 12:00 | NM ---
EXAMINATION TYPE: NM thyroid image only DATE OF EXAM: 11/10/2019 COMPARISON: Prior right thyroid fine-needle aspiration of 11/21/2018 HISTORY: Thyroid nodule TECHNIQUE: After the intravenous administration of 10.03 mCi Tc 99m Sodium Pertechnetate. FINDINGS: There is a focal area of radiotracer uptake in the inferior right thyroid pole. The remainder of the thyroid uptake is overall homogeneous in the nonenlarged thyroid with no substernal extent. IMPRESSION: Autonomously functioning right lower pole thyroid nodule, typically benign. Correlate wit h prior fine-needle aspiration results of 11/21/2018.
== END | disposition home or self-care (01) ==
LOC: RADNMMAIN 10:44
PROVIDERS: ATTEND Family Medicine
DX: E04.1 Nontoxic single thyroid nodule (principal)
CPT/HCPCS: 78013; A9512

== ENCOUNTER → 2020-04-15 | Outpatient (CLI) | payer MEDICARE, OTHER ==
--- NOTE | 2020-04-19 14:07 | MM ---
Reason for exam: screening (asymptomatic). Last mammogram was performed 1 year and 4 months ago. History: Patient is postmenopausal. Family history of breast cancer in mother at age 88. Took hormonal contraceptives for 20 years. Took estrogen for 1 month beginning at age 53. Physical Findings: A clinical breast exam by your physician is recommended on an annual basis and results should be correlated with mammographic findings. MG 3D Screening Mammo W/Cad Bilateral CC and MLO view(s) were taken. Prior study comparison: December 23, 2018, bilateral MG screening mammo w CAD. June 15, 2017, left breast MG work up mamm w CAD LT. The breast tissue is heterogeneously dense. This may lower the sensitivity of mammography. There are benign appearing round calcifications in the left breast. There is no discrete abnormality. ASSESSMENT: Benign, BI-RAD 2 RECOMMENDATION: Routine screening mammogram of both breasts in 1 year.
== END | disposition home or self-care (01) ==
LOC: RADMAMWWP 08:05
PROVIDERS: ATTEND Obstetrics & Gynecology
DX: Z12.31 Encounter for screening mammogram for malignant neoplasm of breast (principal)
CPT/HCPCS: 77063; 77067

== ENCOUNTER → 2021-04-19 | Outpatient (CLI) | payer MEDICARE, OTHER ==
--- NOTE | 2021-04-21 13:06 | MM ---
Reason for exam: screening (asymptomatic). Last mammogram was performed 1 year ago. History: Patient is postmenopausal. Family history of breast cancer in mother at age 88. Took hormonal contraceptives for 20 years. Took estrogen for 1 month beginning at age 53. Took other hormone beginning at age 53. Physical Findings: A clinical breast exam by your physician is recommended on an annual basis and results should be correlated with mammographic findings. MG 3D Screening Mammo W/Cad Bilateral CC and MLO view(s) were taken. Prior study comparison: April 15, 2020, bilateral MG 3d screening mammo w/cad. December 23, 2018, bilateral MG screening mammo w CAD. The breast tissue is heterogeneously dense. This may lower the sensitivity of mammography. No significant changes when compared with prior studies. ASSESSMENT: Benign, BI-RAD 2 RECOMMENDATION: Routine screening mammogram of both breasts in 1 year.
== END | disposition home or self-care (01) ==
LOC: RADMAMWWP 08:13
PROVIDERS: ATTEND Obstetrics & Gynecology
DX: Z12.31 Encounter for screening mammogram for malignant neoplasm of breast (principal); Z78.0 Asymptomatic menopausal state; Z79.3 Long term (current) use of hormonal contraceptives; Z80.3 Family history of malignant neoplasm of breast
CPT/HCPCS: 77063; 77067

== ENCOUNTER → 2022-09-05 | Outpatient (CLI) | payer MEDICARE, OTHER ==
--- NOTE | 2022-09-06 08:01 | MM ---
Reason for Exam: Screening (asymptomatic). Last mammogram was performed 1 year(s) and 4 month(s) ago. Patient History: Menarche at age 10. First Full-Term at age 19. Left ovary removed at age 52. Right ovary removed at age 52. Hysterectomy at age 52. Postmenopausal. Currently using Estrogen, starting at age 53. Patient used Hormonal Contraceptives for 20 years. Mother had breast cancer, age 88. Risk Values: Pallavi 5 year model risk: 2.8%. NCI Lifetime model risk: 15.5%. Prior Study Comparison: 12/23/2018 Bilateral Screening Mammogram, [facility]. 04/15/2020 Bilateral Screening Mammogram, [facility]. 04/19/2021 Bilateral Screening Mammogram, [facility]. Tissue Density: The breast tissue is heterogeneously dense. This may lower the sensitivity of mammography. Findings: Analyzed By CAD. There is no suspicious group of microcalcifications or new suspicious mass in either breast. Overall Assessment: Negative, BI-RAD 1 Management: Screening Mammogram of both breasts in 1 year. A clinical breast exam by your physician is recommended on an annual basis and results should be correlated with mammographic findings. [facility] will attempt to contact patient to return for supplemental views and ultrasound if indicated. Electronically signed and approved by: Marcus Bustos DO
== END | disposition home or self-care (01) ==
LOC: RADMAMWWP 07:42
PROVIDERS: ATTEND Family Medicine
DX: Z12.31 Encounter for screening mammogram for malignant neoplasm of breast (principal); Z78.0 Asymptomatic menopausal state; Z80.3 Family history of malignant neoplasm of breast
CPT/HCPCS: 77063; 77067

== ENCOUNTER → 2023-04-04 | Outpatient (CLI) | payer MEDICARE, OTHER ==
--- NOTE | 2023-04-04 11:42 | XR ---
EXAMINATION TYPE: XR lumbar spine 2 or 3V DATE OF EXAM: 04/04/2023 CLINICAL HISTORY: M51.36 Other DDD Lumbar region TECHNIQUE: Three views of the lumbar spine are submitted. COMPARISON: None. FINDINGS: There are 5 lumbar type vertebral bodies identified. Post surgical changes from posterior lumbar fusi on with bilateral pedicle screws and rods and disc spacers involving L4-S1. Hardware appears intact w ith appropriate alignment. Mild multilevel degenerative disc disease with disc space narrowing, endpl ate sclerosis, and anterior osteophytosis. Multilevel facet arthropathy. The lumbar spine shows [employer] alignment without evidence of acute fracture or dislocation. Vertebral body heights are withi n normal limits. The overlying soft tissue appears unremarkable. IMPRESSION: 1. No acute fracture or dislocation is seen in the lumbar spine. Posterior fusion changes from L4 S1 . Hardware appears intact with appropriate alignment. 2. Mild multilevel degenerative disc disease.
== END | disposition home or self-care (01) ==
LOC: RADXRMAIN 11:20
PROVIDERS: ATTEND Physician Assistant Medical
DX: M51.36 Other intervertebral disc degeneration, lumbar region (principal); Z98.1 Arthrodesis status
CPT/HCPCS: 72100

== ENCOUNTER → 2023-04-04 | Outpatient (CLI) | payer MEDICARE, OTHER ==
[2023-04-04 11:42] VITALS: BP 136/80; PULSE 67; RESP 15; TEMP 98.7
--- NOTE | 2023-04-04 13:55 | P.PAINPG ---
PQRS Measure Charge Sheet Comment: HISTORY OF PRESENT ILLNESS: 57 yr old female as a referral from Tara Mccormick [facility] presents today w severe and LBP x 15 yrs secondary to DDD, spondylosis and facet arthropathy without myelopathy for evaluation. Pt states pain level is provoked at 7 /10 in intensity, constant, localized in the lower cervical spine, sharp in character w shooting pain towards the BUEs. Pain is provoked by rotation and hyperextension. Pain is alleviated by PT approx 5 years ago, physician guided home exercises and stretches in the mornings 4-5 times weekly since 2018, repositioning and rest. Oswestry axial pain score at 24. PMH: Migraines, HTN, Hyperlipidemia, Hypothyroidism, Vitamin D Deficiency, LVH PSH: Lumbar Laminectomy/ Fusion/ L4-S1 CAGE (2004), C Section, Tubal Ligation, L Knee Arthroscopy SH: Former tobacco user, No ETOH abuse, No illicit drug use FH: Mo- CA/ DVT. All: See list Meds: See list REVIEW OF ORGAN SYSTEMS: CONSTITUTIONAL: No fevers or chills. No recent weight loss. NEUROLOGICAL: + numbness and tingling along the distal extremities. No seizure disorders or headaches. MUSCULOSKELETAL: + pain PSYCHIATRIC: Denies current depression or suicidal thoughts. Physical Examinations : Constitutional : Cooperative , not in acute distress . Neurologic : Cranial nerve II to XII intact. No focal neurological deficits. Psychiatric : alert & oriented x 3. Matching mood & appropriate affect. Judgment & insight intact. Musculoskeletal : Cervical Spine Motor strength in the deltoid and biceps: Normal right side. Normal Left side Motor strength biceps and the wrist extensors: Normal right side . Normal left side Motor strength in the triceps muscle: Normal right side. Normal left side Deep tendon reflexes: Normal at the biceps. Normal at Brachioradialis. Normal at triceps Vertebral body tenderness to deep palpation Cervical facet loading test: positive bilaterally Spurling test: positive bilaterally Neck distraction test: positive bilaterally Janette sign: positive bilaterally Lumbar spine Motor strength lower extremities ,thigh and legs 5/5 Right side , 5/5 Left side Deep tendon reflexes : Normal Knee Jerk. Normal Ankle Jerk Vertebral body tenderness over L3 Moss Test positive Lumbar facet Loading Test: positive Right / positive Left Range of motion of the lumbar spine Flexion 30 degrees, extension 10 degrees Straight Leg Raise test: Left/ Right positive at degree Oumou test: positive right / positive left. Severe tenderness over the Sacroiliac joint on the Right / Left sides Gaenslen test: positive bilaterally Seated flexion test: positive bilaterally. Sacral spine : Severe tenderness over the Sacroiliac joint: right side / left side Range of motion: Flexion of the lumbar spine <60 degrees Range of motion: Extension of the lumbar spine <20 degrees Gaenslen's Test positive Brandon's Test positive Oumou test: positive right side / left side Thigh Thrust Test Sacral Thrust Test Imaging: MRI non contrast of the lumbar spine from 07/16/2018 reviewed Assessment/ Plan : Lumbar DDD Recommendation of x ray of the lumbar spine re: M51.36. May need additional testing if indicated. PT x 6 wks re: M51.36. Risks, benefits discussed and patient verbalized understanding. May return to clinic within 2-4 wks for a re evaluation. All questions answered. I have spent greater than 30 minutes on patient care today. Dr Callejas was available by phone for the evaluation of this patient. The time was used to review the medical records including relevant urine studies and Prescription history (MAPs), review of the available imaging, evaluation and examination of the patient, coordination of care with the medical staff and if applicable referring physicians, as well as creation of the medical record PQRS Narrative: Smoking Status Former smoker Home Medications: Ambulatory Orders lisinopriL [Prinivil] 10 mg PO DAILY 01/01/17 Hydrocodone/Acetaminophen [[place] 5-325] 1 each PO Q6HR PRN #10 tab 07/06/18 Cholecalciferol (Vitamin D3) [Vitamin D3] 2,000 unit PO DAILY 11/06/18 Estrogens, Conjugated [Premarin] 0.625 mg PO DAILY 11/21/18 Controlled Substance Measures - Controlled Substance Measures Is patient prescribed a controlled substance at discharge?: No
== END ==
LOC: PNWHC3 10:48
PROVIDERS: ATTEND Specialist
DX: M51.36 Other intervertebral disc degeneration, lumbar region (principal); I10 Essential (primary) hypertension; E78.5 Hyperlipidemia, unspecified; E03.9 Hypothyroidism, unspecified; G43.909 Migraine, unspecified, not intractable, without status migrainosus; Z79.899 Other long term (current) drug therapy; Z87.891 Personal history of nicotine dependence; Z88.0 Allergy status to penicillin; Z88.8 Allergy status to other drugs, medicaments and biological substances
CPT/HCPCS: 99211

== ENCOUNTER → 2023-04-20 | Outpatient (CLI) | payer MEDICARE, OTHER ==
--- NOTE | 2023-04-22 15:02 | MR ---
EXAMINATION TYPE: MR lumbar spine wo con DATE OF EXAM: 04/20/2023 6:45 AM COMPARISON: Radiograph 04/04/2023. CLINICAL INDICATION: Female, 57 years old with history of M51.36 OTHER INTERVERTEBRAL DISC DEGENERATI ON; Low back pain into aline lower extremities TECHNIQUE: Multi planar, multi sequence imaging was performed utilizing: T1-weighted, T2-weighted, a nd turbo inversion recovery imaging of the lumbar spine. IV Contrast: None. FINDINGS: Alignment: The lumbar vertebral bodies have preserved heights and alignment. Cord: The conus medullaris and the distal spinal cord appear unremarkable with regards to their signa l intensity and morphology. There is widening of the thecal sac at level L4-L5 likely postsurgical in nature. Bones/Discs: Postsurgical changes at L4-L5 and S1. Scattered osteophyte formation and facet arthropat hy. Mild reactive bony edema along the adjoining endplates of L2-L3. T12-L1: No evidence of significant spinal canal stenosis or neural foraminal stenosis. L1-L2: No evidence of significant spinal canal stenosis or neural foraminal stenosis. L2-L3: No evidence of significant spinal canal stenosis or neural foraminal stenosis. L3-L4: No evidence of significant spinal canal stenosis or neural foraminal stenosis. L4-L5: Discectomy changes at this level. No evidence of significant spinal canal stenosis. Facet join t arthropathy without significant neural foraminal stenosis. L5-S1: Discectomy changes at this level. No evidence of significant spinal canal stenosis. Facet join t arthropathy without significant neural foraminal stenosis. No significant spinal canal or neural foraminal stenosis in the remainder of the visualized levels. Other findings: Right renal high T2 signal cysts. IMPRESSION: 1. No definitive evidence of disc herniation or significant spinal canal stenosis. 2. Postsurgical change without significant spinal canal or neural foraminal stenosis.
== END | disposition home or self-care (01) ==
LOC: RADMRIMAIN 06:05
PROVIDERS: ATTEND Specialist
DX: M51.36 Other intervertebral disc degeneration, lumbar region (principal)
CPT/HCPCS: 72148

== ENCOUNTER → 2023-04-25 | Outpatient (CLI) | payer MEDICARE, OTHER ==
[2023-04-25 10:31] VITALS: BP 133/84; PULSE 60; RESP 16; TEMP 98.6
--- NOTE | 2023-04-25 14:41 | P.PAINPG ---
PQRS Measure Charge Sheet Comment: HISTORY OF PRESENT ILLNESS: 57 yr old female presents today w severe and LBP x 15 yrs secondary to DDD, spondylosis and facet arthropathy without myelopathy for MRI results. Pt states pain level is provoked at 7 /10 in intensity, constant, localized in the lower lumbar spine, sharp in character w shooting pain towards the BLEs. Pain is provoked by rotation and hyperextension. Pain is alleviated by PT approx 5 years ago, chiropractic treatments weekly x 3 yrs, physician guided home exercises and stretches in the mornings 4-5 times weekly since 2018, medications, topicals, repositioning and rest. Oswestry axial pain score at 32. Interventional procedures include LESIs in the past Medications include [place], Tyl, Voltaren gel REVIEW OF ORGAN SYSTEMS: CONSTITUTIONAL: No fevers or chills. No recent weight loss. NEUROLOGICAL: + numbness and tingling along the distal extremities. No seizure disorders or headaches. MUSCULOSKELETAL: + pain PSYCHIATRIC: Denies current depression or suicidal thoughts. Physical Examinations : Constitutional : Cooperative , not in acute distress . Neurologic : Cranial nerve II to XII intact. No focal neurological deficits. Psychiatric : alert & oriented x 3. Matching mood & appropriate affect. Judgment & insight intact. Musculoskeletal : Cervical Spine Motor strength in the deltoid and biceps: Normal right side. Normal Left side Motor strength biceps and the wrist extensors: Normal right side . Normal left side Motor strength in the triceps muscle: Normal right side. Normal left side Deep tendon reflexes: Normal at the biceps. Normal at Brachioradialis. Normal at triceps Vertebral body tenderness to deep palpation Cervical facet loading test: positive bilaterally Spurling test: positive bilaterally Neck distraction test: positive bilaterally Janette sign: positive bilaterally Lumbar spine Motor strength lower extremities ,thigh and legs 5/5 Right side , 5/5 Left side Deep tendon reflexes : Normal Knee Jerk. Normal Ankle Jerk Vertebral body tenderness Moss Test positive Lumbar facet Loading Test: positive Right / positive Left Range of motion of the lumbar spine Flexion 30 degrees, extension 10 degrees Straight Leg Raise test: Left/ Right positive at 35 degrees Oumou test: positive right / positive left. Severe tenderness over the Sacroiliac joint on the Right / Left sides Gaenslen test: positive bilaterally Seated flexion test: positive bilaterally. Sacral spine : Severe tenderness over the Sacroiliac joint: right side / left side Range of motion: Flexion of the lumbar spine <60 degrees Range of motion: Extension of the lumbar spine <20 degrees Gaenslen's Test positive Brandon's Test positive Oumou test: positive right side / left side Thigh Thrust Test Sacral Thrust Test Imaging: MRI non contrast of the lumbar spine from 04/20/23 reviewed Assessment/ Plan : Post laminectomy syndrome, L4-L5-S1 discectomy Recommendation of BL TFESI L5-S1 #1. May need additional injections for optimal pain relief. Risks, benefits of procedure discussed and patient verbalized understanding. Protocol for discontinuation/ continuation of medications surrounding procedure discussed. All questions answered. I have spent greater than 30 minutes on patient care today. Dr Callejas was available by phone for the evaluation of this patient. The time was used to review the medical records including relevant urine studies and Prescription history (MAPs), review of the available imaging, evaluation and examination of the patient, coordination of care with the medical staff and if applicable referring physicians, as well as creation of the medical record PQRS Narrative: Smoking Status Former smoker Home Medications: Ambulatory Orders lisinopriL [Prinivil] 10 mg PO DAILY 01/01/17 Hydrocodone/Acetaminophen [[place] 5-325] 1 each PO Q6HR PRN #10 tab 07/06/18 Cholecalciferol (Vitamin D3) [Vitamin D3] 2,000 unit PO DAILY 11/06/18 Estrogens, Conjugated [Premarin] 0.625 mg PO DAILY 11/21/18 Atorvastatin [Lipitor] 10 mg PO DAILY 04/25/23 Diclofenac Sodium Gel [Voltaren Gel] 04/25/23 Levothyroxine Sodium 25 mcg PO 04/25/23 Controlled Substance Measures - Controlled Substance Measures Is patient prescribed a controlled substance at discharge?: No
== END ==
LOC: PNWHC3 10:02
PROVIDERS: ATTEND Specialist
DX: M47.816 Spondylosis without myelopathy or radiculopathy, lumbar region (principal); M96.1 Postlaminectomy syndrome, not elsewhere classified; Z88.0 Allergy status to penicillin; Z88.8 Allergy status to other drugs, medicaments and biological substances; Z87.891 Personal history of nicotine dependence
CPT/HCPCS: 99211

== ENCOUNTER → 2023-09-06 | Outpatient (CLI) | payer MEDICARE, OTHER ==
--- NOTE | 2023-09-07 13:26 | MM ---
Reason for Exam: Screening (asymptomatic). Last screening mammogram was performed 12 month(s) ago. Patient History: Menarche at age 10. First Full-Term at age 19. Left ovary removed at age 52. Right ovary removed at age 52. Hysterectomy at age 52. Postmenopausal. Currently using Estrogen, starting at age 53. Patient used Hormonal Contraceptives for 20 years. Mother had breast cancer, age 88. Risk Values: Pallavi 5 year model risk: 2.9%. NCI Lifetime model risk: 15.1%. Prior Study Comparison: 04/15/2020 Bilateral Screening Mammogram, [facility]. 04/19/2021 Bilateral Screening Mammogram, [facility]. 09/05/2022 Bilateral MG 3D screening mammo w/cad, [facility]. Tissue Density: The breast tissue is heterogeneously dense. This may lower the sensitivity of mammography. Findings: Analyzed By CAD. There is no suspicious group of microcalcifications or new suspicious mass. Benign-appearing calcifications left breast. Overall Assessment: Benign, BI-RAD 2 Management: Screening Mammogram of both breasts in [address] [facility] will attempt to contact patient to return for supplemental views and ultrasound if indicated. Patient should continue monthly self-breast exams. A clinical breast exam by your physician is recommended on an annual basis. This exam should not preclude additional follow-up of suspicious palpable abnormalities. Note on Pallavi scores and lifetime risk: 1. A Pallavi score greater than 3% is considered moderate risk. If this is the case, consider specialist referral to assess eligibility for a risk reducing agent. 2. If overall lifetime risk for the development of breast cancer is 20% or higher, the patient may qualify for future screening with alternating mammogram and breast MRI. Electronically signed and approved by: Marcus Bustos DO
--- NOTE | 2023-09-09 20:58 | BD ---
EXAMINATION TYPE: Axial Bone Density DATE OF EXAM: 09/06/2023 CLINICAL HISTORY: 58 years old Female. ICD-10 CODE: Z78.0 ASYMPTOMATIC MENOPAUSAL STA Height: 65.7 in Weight: 171 lbs FRAX RISK QUESTIONS: Family History (Parent hip fracture): no History of Fracture in Adulthood: no Secondary Osteoporosis: no RISK FACTORS HISTORY OF: Surgery to Spine: yes When: 2004 Family History of Osteoporosis: yes Active: yes Diet low in dairy products/other sources of calcium: no Postmenopausal woman: yes Take estrogen and/or progesterone medications: yes How lon-4 years Lost more than 2 inches in height since high school: no Frequent falls: no MEDICATIONS: Thyroid Medications: yes Which medication: Levothyroxine How Lon+ years Additional Medications: yes vit d, hbp meds, cholesterol meds EXAM MEASUREMENTS: Bone mineral densitometry was performed using the [employer] System. Bone mineral density about the R hip (g/cm2): 0.972 Bone mineral density about the L hip (g/cm2): 0.955 T Score values are as follows: -----R Neck: -0.4 -----L Neck: -0.6 -----R Total: -0.3 -----L Total: -0.4 Z Score values are as follows: -----R Neck: 0.5 -----L Neck: 0.3 -----R Total: 0.3 -----L Total: 0.2 Bone mineral density has: Increased -1.9% since study of: 12/23/2018 Bone mineral density about the L Wrist (g/cm2): 0.610 T Score values are as follows: -----Dist. R+U: -1.4 -----Prox. R+U: -0.1 -----Radius total: -1.1 Z Score values are as follows: -----Dist. R+U: -0.5 -----Prox. R+U: 0.7 -----Radius total: -0.2 Bone mineral density has: Increased 2.7% since study of: 12/23/2018 FRAX%s: The graph provided illustrates a 6.5% chance for a major osteoporotic fx and a 0.2% chance fo r the hips probability for fx in 10 years time. IMPRESSION: Osteopenia (T Score between -2.5 and -1). There is slightly increased risk of fracture and the patient may be considered for treatment. Re-Screen 2-5 years. NOTE: T-SCORE=SD OF THE YOUNG ADULT MEAN.
== END | disposition home or self-care (01) ==
LOC: RADMAMWWP 07:43
PROVIDERS: ATTEND Family Medicine
DX: Z12.31 Encounter for screening mammogram for malignant neoplasm of breast (principal); M85.851 Other specified disorders of bone density and structure, right thigh; Z80.3 Family history of malignant neoplasm of breast; Z78.0 Asymptomatic menopausal state
CPT/HCPCS: 77063; 77067; 77080

== ENCOUNTER 2024-09-30 14:30 | Emergency (ER) | payer MEDICARE, OTHER ==
[2024-09-30 14:48] VITALS: TEMP 99.1
--- NOTE | 2024-09-30 15:40 | ED ---
URI HPI - General Source: patient, RN notes reviewed Mode of arrival: ambulatory Limitations: no limitations - History of Present Illness MD Complaint: cough Onset/Timin -: days(s) <Idris Marrero - Last Filed: 09/30/24 17:29> <RomuloKaren Larisa - Last Filed: 10/08/24 12:54> - General Chief Complaint: Upper Respiratory Infection Stated Complaint: Cough,headache,abd pain Time Seen by Provider: 09/30/24 14:47 - History of Present Illness Initial Comments: Exam: This is a 59-year-old female presenting with productive cough and fever (104F) since yesterday. Patient endorses abdomen/back pain that worsens with coughing. Also endorses chills, body aches, headache and fatigue. Endorses recent sick contact with grandchildren. (Idris Marrero) - Related Data Home Medications Medication Instructions Recorded Confirmed lisinopriL [Prinivil] 10 mg PO DAILY 01/01/17 04/04/23 Cholecalciferol (Vitamin D3) 2,000 unit PO DAILY 11/06/18 04/04/23 [Vitamin D3] Estrogens, Conjugated [Premarin] 0.625 mg PO DAILY 11/21/18 04/04/23 Atorvastatin [Lipitor] 10 mg PO DAILY 04/25/23 04/25/23 Diclofenac Sodium Gel [Voltaren 1% 04/25/23 04/25/23 Gel] Levothyroxine Sodium 25 mcg PO 04/25/23 Previous Rx's Medication Instructions Recorded Hydrocodone/Acetaminophen [[place] 1 each PO Q6HR PRN #10 tab 07/06/18 5-325] Azithromycin [Zithromax Z Pack] 0 tab PO DIRECTED #6 tab 09/30/24 Cyclobenzaprine [Flexeril] 10 mg PO TID PRN #15 tab 09/30/24 Oseltamivir [Tamiflu] 75 mg PO Q12HR #10 cap 09/30/24 Allergies Allergy/AdvReac Type Severity Reaction Status Date / Time amoxicillin [From Augmentin] AdvReac SEVERE Verified 09/30/24 14:48 YEAST INFECTION clavulanic acid AdvReac SEVERE Verified 09/30/24 14:48 [From Augmentin] YEAST INFECTION Review of Systems ROS Other: All systems not noted in ROS Statement are negative. <Idris Marrero - Last Filed: 09/30/24 17:29> ROS Other: All systems not noted in ROS Statement are negative. <Karen Sebastian - Last Filed: 10/08/24 12:54> ROS Statement: Those systems with pertinent positive or pertinent negative responses have been documented in the HPI. Past Medical History Past Medical History: Musculoskeletal Disorder Additional Past Medical History / Comment(s): DEGENERATIVE DISC DISEASE, ARTHRITIS SPINE, migraines History of Any Multi-Drug Resistant Organisms: None Reported Past Surgical History: Back Surgery, Section, Orthopedic Surgery, Tubal Ligation Additional Past Surgical History / Comment(s): ARTHROSCOPY LEFT KNEE Past Anesthesia/Blood Transfusion Reactions: No Reported Reaction Past Psychological History: No Psychological Hx Reported Smoking Status: Former smoker - Past Family History Mother Family Medical History: Cancer, Deep Vein Thrombosis (DVT) <Idirs Marrero - Last Filed: 09/30/24 17:29> General Exam Limitations: no limitations <Idris Marrero - Last Filed: 09/30/24 17:29> - General Exam Comments Initial Comments: Visual Physical Exam Vital signs reviewed General: Well-appearing, nontoxic, no acute distress. Head: Normocephalic, atraumatic Eyes: PERRLA, EOMI ENT: Airway patent Chest: Nonlabored breathing Skin: No visual rash, normal skin tone Neuro: Alert and oriented 3 Musculoskeletal: No gross abnormalities (Idris Marrero) Course Vital Signs 09/30/24 09/30/24 14:46 18:04 Temperature 99.1 F Pulse Rate 104 H 100 Respiratory 20 18 Rate Blood Pressure 156/75 143/71 O2 Sat by Pulse 96 100 Oximetry Medical Decision Making <dIris Marrero - Last Filed: 09/30/24 17:29> <Karen Sebastian - Last Filed: 10/08/24 12:54> - Medical Decision Making I completed the quick note portion of this chart signed REZA Jane (Idris Marrero) Please see the other note completed on this patient from the same day for the remainder of what happened during the patient's visit (Karen Sebastian) - Lab Data Lab Results 09/30/24 Range/Units 14:49 Influenza Type A (PCR) Detected A (Not Detectd) Influenza Type B (PCR) Not Detected (Not Detectd) RSV (PCR) Not Detected (Not Detectd) SARS-CoV-2 (PCR) Not Detected (Not Detectd) Disposition Is patient prescribed a controlled substance at d/c from ED?: No Time of Disposition: 17:03 <Idris Marrero - Last Filed: 09/30/24 17:29> <Karen Sebastian - Last Filed: 10/08/24 12:54> Clinical Impression: Influenza, Muscle spasm of back, Pneumonia Disposition: HOME SELF-CARE Condition: Good Instructions (If sedation given, give patient instructions): Influenza (ED), Community Acquired Pneumonia (ED) Prescriptions: Cyclobenzaprine [Flexeril] 10 mg PO TID PRN #15 tab PRN Reason: Spasms Oseltamivir [Tamiflu] 75 mg PO Q12HR #10 cap Azithromycin [Zithromax Z Pack] 0 tab PO DIRECTED #6 tab Referrals: Jailene Patterson DO [Primary Care Provider] - 1-2 days
[2024-09-30 16:37] LABS: Influenza A Detected (Not Detectd); Influenza B Not Detected (Not Detectd); RSV Not Detected (Not Detectd)
--- NOTE | 2024-09-30 17:20 | XR ---
EXAMINATION TYPE: XR chest 2V DATE OF EXAM: 09/30/2024 5:15 PM COMPARISON: None CLINICAL INDICATION: Female, 59 years old with history of Cough, fever; TECHNIQUE: XR chest 2V Frontal and lateral views of the chest. FINDINGS: Lungs/Pleura: Right lower lobe airspace opacities. No evidence of pneumothorax or pleural effusion. Pulmonary vascularity: Unremarkable. Heart/mediastinum: Cardiomediastinal silhouette is unremarkable. Musculoskeletal: No acute osseous pathology. IMPRESSION: RIGHT lower lobe airspace opacities. [facility], , 09/30/2024 5:17 PM
--- NOTE | 2024-09-30 17:31 | ED ---
URI HPI - General Chief Complaint: Upper Respiratory Infection Stated Complaint: Cough,headache,abd pain Time Seen by Provider: 09/30/24 14:47 Source: patient, RN notes reviewed Mode of arrival: ambulatory Limitations: no limitations - History of Present Illness Initial Comments: This is a 59-year-old female presenting with fever and productive cough since yesterday. Patient also endorses chills, body aches, headache, fatigue and back pain (10/10) that worsens with cough and lying supine. Endorses recent sick contact with grandchildren. MD Complaint: fever, cough Onset/Timin -: days(s) Severity scale (1-10): 9 Quality: aching Consistency: constant Improves With: nothing Context: sick contacts Treatments Prior to Arrival: Acetaminophen - Related Data Home Medications Medication Instructions Recorded Confirmed lisinopriL [Prinivil] 10 mg PO DAILY 01/01/17 04/04/23 Cholecalciferol (Vitamin D3) 2,000 unit PO DAILY 11/06/18 04/04/23 [Vitamin D3] Estrogens, Conjugated [Premarin] 0.625 mg PO DAILY 11/21/18 04/04/23 Atorvastatin [Lipitor] 10 mg PO DAILY 04/25/23 04/25/23 Diclofenac Sodium Gel [Voltaren 1% 04/25/23 04/25/23 Gel] Levothyroxine Sodium 25 mcg PO 04/25/23 Previous Rx's Medication Instructions Recorded Hydrocodone/Acetaminophen [[place] 1 each PO Q6HR PRN #10 tab 07/06/18 5-325] Azithromycin [Zithromax Z Pack] 0 tab PO DIRECTED #6 tab 09/30/24 Cyclobenzaprine [Flexeril] 10 mg PO TID PRN #15 tab 09/30/24 Oseltamivir [Tamiflu] 75 mg PO Q12HR #10 cap 09/30/24 Allergies Allergy/AdvReac Type Severity Reaction Status Date / Time amoxicillin [From Augmentin] AdvReac SEVERE Verified 09/30/24 14:48 YEAST INFECTION clavulanic acid AdvReac SEVERE Verified 09/30/24 14:48 [From Augmentin] YEAST INFECTION Review of Systems ROS Statement: Those systems with pertinent positive or pertinent negative responses have been documented in the HPI. ROS Other: All systems not noted in ROS Statement are negative. Past Medical History Past Medical History: Musculoskeletal Disorder Additional Past Medical History / Comment(s): DEGENERATIVE DISC DISEASE, ARTHRITIS SPINE, migraines History of Any Multi-Drug Resistant Organisms: None Reported Past Surgical History: Back Surgery, Section, Orthopedic Surgery, Tubal Ligation Additional Past Surgical History / Comment(s): ARTHROSCOPY LEFT KNEE Past Anesthesia/Blood Transfusion Reactions: No Reported Reaction Past Psychological History: No Psychological Hx Reported Smoking Status: Former smoker - Past Family History Mother Family Medical History: Cancer, Deep Vein Thrombosis (DVT) General Exam Limitations: no limitations General appearance: alert, in no apparent distress Head exam: Present: atraumatic, normocephalic, normal inspection Eye exam: Present: normal appearance, PERRL, EOMI. Absent: scleral icterus, conjunctival injection, periorbital swelling ENT exam: Present: normal exam, mucous membranes moist Neck exam: Present: normal inspection. Absent: tenderness, meningismus, lymphadenopathy Respiratory exam: Present: rhonchi, decreased breath sounds. Absent: respiratory distress, wheezes, rales, stridor, accessory muscle use Cardiovascular Exam: Present: regular rate, normal rhythm, normal heart sounds. Absent: systolic murmur, diastolic murmur, rubs, gallop, clicks GI/Abdominal exam: Present: soft, normal bowel sounds. Absent: distended, tenderness, guarding, rebound, rigid Extremities exam: Present: normal inspection, full ROM, normal capillary refill. Absent: tenderness, pedal edema, joint swelling, calf tenderness Back exam: Present: normal inspection Neurological exam: Present: alert, oriented X3, CN II-XII intact Psychiatric exam: Present: normal affect, normal mood Skin exam: Present: warm, dry, intact, normal color. Absent: rash Course Vital Signs 09/30/24 09/30/24 14:46 18:04 Temperature 99.1 F Pulse Rate 104 H 100 Respiratory 20 18 Rate Blood Pressure 156/75 143/71 O2 Sat by Pulse 96 100 Oximetry Medical Decision Making - Medical Decision Making Was pt. sent in by a medical professional or institution (, PA, ALLOCATION ANALYST, urgent care, hospital, or senior care...) When possible be specific @ -No Did you speak to anyone other than the patient for history (EMS, parent, family, police, friend...)? What history was obtained from this source @ -No Did you review nursing and triage notes (agree or disagree)? Why? @ -I reviewed and agree with nursing and triage notes Were old charts reviewed (outside hosp., previous admission, EMS record, old EKG, old radiological studies, urgent care reports/EKG's, senior care records)? Report findings @ -No old charts were reviewed Differential Diagnosis (chest pain, altered mental status, abdominal pain women, abdominal pain men, vaginal bleeding, weakness, fever, dyspnea, syncope, headache, dizziness, GI bleed, back pain, seizure, CVA, palpatations, mental health, musculoskeletal)? @ -Differential Fever: Pneumonia, viral URI, endocarditis, myocarditis, pericarditis, otitis, sinusitis, peritonsillar Abscess, retropharyngeal Abscess, epiglottitis, peritonitis, appendicitis, Gaby cystitis, diverticulitis, hepatitis, colitis, UTI, PID, TOA, pyelonephritis, prostatitis, epididymitis, meningitis, encephalitis, pulmonary embolism, CVA, thyroid storm, pancreatitis, adrenal crisis, cavernous sinus thrombosis, this is not meant to be an all-inclusive list. EKG interpreted by me (3pts min.). @ -Not done X-rays interpreted by me (1pt min.). @ -CXR shows right lower lobe opacity. CT interpreted by me (1pt min.). @ -None done U/S interpreted by me (1pt. min.). @ -None done What testing was considered but not performed or refused? (CT, X-rays, U/S, labs)? Why? @ -None What meds were considered but not given or refused? Why? @ -None Did you discuss the management of the patient with other professionals (professionals i.e. , PA, ALLOCATION ANALYST, lab, RT, psych nurse, director social, php web developer, teacher, catapult and arresting gear officer, employment case manager)? Give summary @ -No Was smoking cessation discussed for >3mins.? @ -No Was critical care preformed (if so, how long)? @ -No Were there social determinants of health that impacted care today? How? (Homelessness, low income, unemployed, alcoholism, drug addiction, transportation, low edu. Level, literacy, decrease access to med. care, [facility], rehab)? @ -No Was there de-escalation of care discussed even if they declined (Discuss DNR or withdrawal of care, Hospice)? DNR status @ -No What co-morbidities impacted this encounter? (DM, HTN, Smoking, COPD, CAD, Cancer, CVA, ARF, Chemo, Hep., AIDS, mental health diagnosis, sleep apnea, morbid obesity)? @ -None Was patient admitted / discharged? Hospital course, mention meds given and route, prescriptions, significant lab abnormalities, going to OR and other pertinent info. @ -Cepheid test positive for influenza A. CXR shows right lower lobe opacity. Patient provided IM Norflex, Toradol for back pain and Rocephin for pneumonia. Flexeril, azithromycin and Tamiflu sent to patient's pharmacy. Advised follow- up with PCP in the next 24 to [address] patient with Dr. Sebastian. Undiagnosed new problem with uncertain prognosis? @ -No Drug Therapy requiring intensive monitoring for toxicity (Heparin, Nitro, Insulin, Cardizem)? @ -No Were any procedures done? @ -No Diagnosis/symptom? @ -Pneumonia, influenza A, mechanical back pain Acute, or Chronic, or Acute on Chronic? @ -Acute Uncomplicated (without systemic symptoms) or Complicated (systemic symptoms)? @ -Complicated Side effects of treatment? @ -No Exacerbation, Progression, or Severe Exacerbation? @ -No Poses a threat to life or bodily function? How? (Chest pain, [place], [place], pneumonia, PE, COPD, DKA, ARF, appy, cholecystitis, CVA, Diverticulitis, Homicidal, Suicidal, threat to staff... and all critical care pts) @ -No - Lab Data Lab Results 09/30/24 Range/Units 14:49 Influenza Type A (PCR) Detected A (Not Detectd) Influenza Type B (PCR) Not Detected (Not Detectd) RSV (PCR) Not Detected (Not Detectd) SARS-CoV-2 (PCR) Not Detected (Not Detectd) Disposition Clinical Impression: Influenza, Muscle spasm of back, Pneumonia Disposition: HOME SELF-CARE Condition: Good Instructions (If sedation given, give patient instructions): Influenza (ED), Community Acquired Pneumonia (ED) Prescriptions: Cyclobenzaprine [Flexeril] 10 mg PO TID PRN #15 tab PRN Reason: Spasms Oseltamivir [Tamiflu] 75 mg PO Q12HR #10 cap Azithromycin [Zithromax Z Pack] 0 tab PO DIRECTED #6 tab Is patient prescribed a controlled substance at d/c from ED?: No Referrals: Jailene Patterson DO [Primary Care Provider] - 1-2 days Time of Disposition: 17:00
[2024-09-30] MEDS: ORPHENADRINE 30 MG/ML 2 ML VIAL IM STA (17:56)
[2024-09-30] MEDS: KETOROLAC 15 MG/ML 1 ML VIAL IM STA (17:57)
[2024-09-30] MEDS: cefTRIAXone IN SWFI 1,000 MG/10 ML SYRINGE IVP STA (17:57)
[2024-09-30 18:05] VITALS: BP 143/71; PULSE 100; RESP 18
== END 2024-09-30 18:11 | disposition home or self-care (01) ==
LOC: EC 14:30
DX: J11.00 Influenza due to unidentified influenza virus with unspecified type of pneumonia (principal); M62.830 Muscle spasm of back; Z87.891 Personal history of nicotine dependence; Z88.0 Allergy status to penicillin; Z88.1 Allergy status to other antibiotic agents
CPT/HCPCS: 99284; 96374; 96372; 87636; 71046; J2360; J0696; J1885